=== PATIENT | female | born 1935 | race Caucasian/White ===

== ENCOUNTER 2022-03-14 15:13 | Inpatient (IN) | payer MEDICARE, SELFPAY ==
[2022-03-14 15:15] VITALS: BP 127/70; PULSE 80; RESP 17; TEMP 36; O2SAT 92; BMI 24.7
--- NOTE | 2022-03-14 15:40 | EDS_ITS ---
HPI <MAJOR Cook - Last Filed: 03/14/22 16:49> HPI - Fall History of Present Illness Chief Complaint: Fall Narrative Narrative: Prior to arrival 86-year-old female tripped and fell on her outdoor patio and landed on her left hip. No head injury or LOC. She was unable to get up or ambulate and complains of left hip and left knee pain. She has a history of left knee replacement. Denies other injuries. PFSH <MAJOR Cook - Last Filed: 03/14/22 16:49> [facility] Home Medications lisinopril 20 mg tablet 10 mg PO DAILY 03/14/22 [History Last Taken Unknown] tramadol 50 mg tablet 50 mg PO BID 03/14/22 [History Last Taken Unknown] Allergy/AdvReac Type Severity Reaction Status Date / Time amlodipine [From Norvasc] Allergy Anaphylaxis Verified 03/14/22 15:21 benazepril Allergy Anaphylaxis Verified 03/14/22 15:21 ciprofloxacin [From Cipro] Allergy Anaphylaxis Verified 03/14/22 15:21 metoprolol Allergy MADE HER Verified 03/14/22 15:21 FEEL ODD prednisone Allergy Anaphylaxis Verified 03/14/22 15:21 Social History Smoking Status: Former smoker ROS <MAJOR Cook Last Filed: 03/14/22 16:49> ROS ED ROS Narrative Constitutional: Negative for fever, chills, malaise. Eyes: Negative for visual change. ENT: Negative for sore throat, rhinorrhea. CVS: Negative for palpitations, chest pain, syncope. Respiratory: Negative for shortness of breath, cough. GI: Negative for abdominal pain, nausea, vomiting. : Negative for dysuria, hematuria or frequency. Neuro: Negative for headache, motor/sensory dysfunction. Skin: Negative for rash, abscess, or wound. Musc: Torin for left hip pain, trauma. Heme: Negative for easy bruising, bleeding, lymphadenopathy. EXAM <MAJOR Cook Last Filed: 03/14/22 16:49> Physical Exam Narrative Exam Narrative: CONST: Patient sitting in no acute distress. EYES: Normal inspection. HEAD: Atraumatic, normocephalic. NECK: Normal inspection. RESP: No respiratory distress, CTAB. Chest wall nontender. CVS: Regular rate and rhythm, no murmur, no gallop. ABD: Soft and nontender, no guarding or rebound. Back: Normal inspection, no midline spinal tenderness or step-offs. SKIN: Color normal, no rash, warm, dry, intact. EXTREMITIES: Left leg shortened with no rotation, tender to palpation over left hip and left knee. Small abrasion left lateral ankle but no bony tenderness of the ankle or foot, 2+ DP pulses. No bony tenderness of upper extremities, full range of motion, 2+ radial pulses. NEURO: Oriented x4. PSYCH: Normal affect. Const Vital Signs: 03/14/22 15:15 Temperature 96.8 F L Temperature Source Temporal Pulse Rate 80 Respiratory Rate 17 Blood Pressure 127/70 H Blood Pressure Mean 89 Pulse Ox 92 Oxygen Delivery Method Room Air <Dr. Al Fontana DO - Last Filed: 03/14/22 16:47> Physical Exam Const Vital Signs: 03/14/22 15:15 Temperature 96.8 F L Temperature Source Temporal Pulse Rate 80 Respiratory Rate 17 Blood Pressure 127/70 H Blood Pressure Mean 89 Pulse Ox 92 Oxygen Delivery Method Room Air MDM <MAJOR Cook - Last Filed: 03/14/22 16:49> [facility] Narrative Medical decision making narrative: Patient had a mechanical fall onto her left hip and presents with hip and knee pain. There was no head injury. She has left lower extremity shortening and tenderness over the hip. Pelvis is stable. She also has mild tenderness over the knee and with history of a knee replacement x-rays of both the hip and knee will be obtained. Left hip x-ray shows femoral neck fracture. Knee x-ray negative. Case was discussed with Dr. Hyatt and the hospitalist for admission. 1. Left hip pain 2. Closed left hip fracture 3. Left knee contusion 4. Left ankle abrasion I performed a history and physical examination of the patient and discussed management plan with the physician personal assistant. I reviewed the physician personal assistant's note and agree with the documented findings and plan of care. My interpretation of the plain films of the left knee is no acute fracture. My interpretation of the plain films of the left hip is an acute basicervical fracture. Patient's orthopedic surgeons have retired and the patient and family would like her to be admitted here. NVI distal to injury. Al Fontana DO [facility] Radiography Diagnostic Testing: Clinical Impression(s) from Imaging Studies Hip/Pelvis X-Ray 03/14/22 16:09 IMPRESSION: Left femoral neck fracture. Electronically Signed: Marietta Hartman MD at 16:46 EDT , Knee X-Ray 03/14/22 16:09 IMPRESSION: Total knee arthroplasty, grossly anatomic in alignment. Electronically Signed: Marietta Hartman MD at 16:43 EDT , <Dr. Al Fontana DO - Last Filed: 03/14/22 16:47> [facility] MDM Narrative Medical decision making narrative: Patient had a mechanical fall onto her left hip and presents with hip and knee pain. There was no head injury. She has left lower extremity shortening and tenderness over the hip. Pelvis is stable. She also has mild tenderness over the knee and with history of a knee replacement x-rays of both the hip and knee will be obtained. Left hip x-ray shows subcapital fracture. Case was discussed with Dr. Hyatt and the hospitalist for admission. 1. Left hip pain 2. Closed left hip fracture 3. Left knee contusion 4. Left ankle abrasion I performed a history and physical examination of the patient and discussed management plan with the physician personal assistant. I reviewed the physician personal assistant's note and agree with the documented findings and plan of care. My interpretation of the plain films of the left knee is no acute fracture. My interpretation of the plain films of the left hip is an acute basicervical fracture. Patient's orthopedic surgeons have retired and the patient and family would like her to be admitted here. NVI distal to injury. Al Fontana DO, [facility] Radiography Diagnostic Testing: Clinical Impression(s) from Imaging Studies Hip/Pelvis X-Ray 03/14/22 16:09 IMPRESSION: Left femoral neck fracture. Electronically Signed: Marietta Hartman MD at 16:46 EDT , Knee X-Ray 03/14/22 16:09 IMPRESSION: Total knee arthroplasty, grossly anatomic in alignment. Electronically Signed: Marietta Hartman MD at 16:43 EDT , Discharge Plan Dx/Rx/DC Orders Clinical Impression: Fall, Closed fracture of left hip, Contusion of knee, left Disposition Disposition: Acute Care Hospital [facility]
[2022-03-14] MEDS: Morphine 4 MG/ML Syringe IV ×2 (15:41→17:10)
[2022-03-14] MEDS: Ondansetron 4 MG/2 ML Vial IV (15:41)
--- NOTE | 2022-03-14 16:09 | RAD_ITS ---
STUDY: X-RAY - PELVIS AND LEFT HIP REASON FOR EXAM: Female, 86 years old. Fall TECHNIQUE: 3 views of the pelvis and hip. COMPARISON: None. FINDINGS: There is a non-specific bowel gas pattern. Normal visualized soft tissue structures. There are degenerative changes of the visualized lumbar spine. Normal bilateral iliac wings, sacroiliac joints and visualized sacrum. Normal bilateral superior and inferior pubic rami. Normal pubic symphysis. Normal bilateral ischial tuberosities. There is a right total hip arthroplasty in place that is grossly anatomic in alignment. There is a left femoral neck fracture with migration of the distal femur. RAD/HIP, UNI W/ Pelvis 2-3 Views IMPRESSION: Left femoral neck fracture. Electronically Signed: Marietta Hartman MD at 16:46 EDT ,
--- NOTE | 2022-03-14 16:09 | RAD_ITS ---
STUDY: X-RAY - LEFT KNEE REASON FOR EXAM: Female, 86 years old. Knee pain TECHNIQUE: 2 view(s) of the knee. COMPARISON: None. FINDINGS: There is a total knee arthroplasty in place. The alignment is anatomic. No suspicious bony lesions are visualized. No acute fracture nor dislocation is visualized. RAD/Knee 1 or 2 Views IMPRESSION: Total knee arthroplasty, grossly anatomic in alignment. Electronically Signed: Marietta Hartman MD at 16:43 EDT ,
--- NOTE | 2022-03-14 16:39 | HP.PCM.HOS_ITS ---
HPI - General General Date of Admission: 03/14/22 Date of Service: 03/14/22 Chief Complaint: Mechanical fall, L hip pain. HPI Narrative The patient is an 86 y/o F w/ PMHx: HTN who presents to the [facility] ED on 03/14/22 with history of mechanical fall onto her left hip and left side with associated concurrent knee pain with no LOC nor head injury with immediately intractable severe, sharp, constant debilitating 10/10 pain, inability to bear weight, noted LLE rotation and shortened status prompting ED evaluation. Patient notes that she had been trimming a hedge and stepped off a step flying unexpectedly and landing onto that left side. She is extremely active and swims routinely during the week and performs all her own ADLs. She denies any recent problems with shortness of breath, chest discomfort, orthopnea, recent any viral illnesses. In the ED work-up included T96.8, heart rate 80, BP 127/70, respiratory rate 17, 92% on room air, plain film of the hip and knee with evidence of left knee contusion, evaluation with concern for left ankle abrasion and evidence of a left subcapital hip fracture. ED discussed case with Dr. Hyatt who reports intention to take the patient to perform operative intervention. In the ED patient administered Zofran 4 mg x 1, morphine 4 mg x 1 and Ativan 0.5 mg x 1 IV. Discussed with ED physician and requested EKG be obtained in the ED prior to transition and that also admission labs be obtained evaluation CBC noted with WBC 11.4, hemoglobin 12.6, platelet 165 with left shift, unremarkable INR and PT, pending BMP, type and screen performed per ED staff, EKG obtained as well and performed during hospitalist evaluation noted to be sinus rhythm with right bundle with no acute evidence of ischemia. In the ED given ongoing severe pain patient administered an additional 4 mg morphine IV x1. [facility] Medical History (Updated 03/14/22 @ 17:[address] Emely David MD) Former tobacco use HTN (hypertension) Hx SBO Osteoarthritis Home Medications lisinopril 20 mg tablet 10 mg PO DAILY 03/14/22 [History Last Taken Unknown] tramadol 50 mg tablet 50 mg PO BID 03/14/22 [History Last Taken Unknown] Allergy/AdvReac Type Severity Reaction Status Date / Time amlodipine [From [facility]] Allergy Anaphylaxis Verified 03/14/22 15:21 benazepril Allergy Anaphylaxis Verified 03/14/22 15:21 ciprofloxacin [From Cipro] Allergy Anaphylaxis Verified 03/14/22 15:21 metoprolol Allergy MADE HER Verified 03/14/22 15:21 FEEL ODD prednisone Allergy Anaphylaxis Verified 03/14/22 15:21 Family History (Updated 03/14/22 @ 17:[address] Emely David MD) Mother Dementia Father Cancer Hx Lung CA with concurrent tobacco use history. Surgical History (Updated 03/14/22 @ 17:[address] Emely David MD) H/O cataract extraction History of bowel resection History of hysterectomy History of lumbar surgery History of total bilateral knee replacement History of total right hip replacement S/P right rotator cuff repair Social History (Updated 03/14/22 @ 17:[address] Emely David MD) household members: spouse Smoking Status: Former smoker how long ago did patient quit smoking: Quit 1984, smoked age 19 until quit ~ 1 ppd. alcohol intake: current alcohol intake frequency: 0-2 drinks per day Alcohol type: wine details: Drinks one glass wine with dinner nightly. substance use type: does not use ROS ROS Narrative Admission Review of Systems: CONSTITUTIONAL: No weight loss, fever, chills, + weakness or fatigue. HEENT: Eyes: No visual loss, blurred vision, double vision or yellow sclerae. Ears, Nose, Throat: No hearing loss, sneezing, congestion, runny nose or sore throat. SKIN: No rash or itching, lesions, wounds. CARDIOVASCULAR: No chest pain, chest pressure or chest discomfort, palpitations, edema, orthopnea, syncopal events. RESPIRATORY: No shortness of breath, cough or sputum, wheezing, hemoptysis. GASTROINTESTINAL: No anorexia, nausea, vomiting or diarrhea, abdominal pain, melena, BRBPR. GENITOURINARY: No dysuria, frequency, urgency or retention. NEUROLOGICAL: No headache, dizziness, syncope, paralysis, ataxia, numbness or tingling in the extremities, focal weakness, change in bowel or bladder control, seizure. MUSCULOSKELETAL: + muscle, back pain, joint pain or stiffness. HEMATOLOGIC: No anemia, bleeding or bruising. LYMPHATICS: No enlarged nodes. No history of splenectomy. PSYCHIATRIC: No history of depression or anxiety. ENDOCRINOLOGIC: No reports of sweating, cold or heat intolerance. No polyuria or polydipsia. ALLERGIES: No history of asthma, hives, eczema or rhinitis. Vital Signs Vital Signs Vital Signs: 03/14/22 15:15 Temperature 96.8 F L Temperature Source Temporal Pulse Rate 80 Respiratory Rate 17 Blood Pressure 127/70 H Blood Pressure Mean 89 Pulse Ox 92 Oxygen Delivery Method Room Air Weight Weight: 135 lb Body Mass Index (BMI) 24.7 Physical Exam Narrative Physical Examination: General: Awake, alert, oriented x 3 and cooperative, laying in the ED bed, extremely uncomfortable appearing, tearful. Skin: Normal color, normal turgor, no icterus, no cyanosis except for occasional abrasion. HEENT: AT/NC, EOMI, PERRLA, moderately dry MM, no carotid bruits or JVD noted. Lungs: Diminished, greater bases, appropriate effort, no rales, ronchi or wheezing. Heart: Currently mildly tachycardic with regular rhythm; no gallop, rub audible. Abdomen: Soft, NTTP, ND, mildly hyperactive BS, no HSM. Extremities: No cyanosis, no clubbing, left lower extremity status post fall with hip fracture, externally rotated, mild peripheral swelling, peripheral pulses intact. Neurological: Patient awake, alert, oriented as noted, cognitive function intact; pupils equally reactive to light and accommodation, cranial nerves II- XII grossly normal, moving all 4 extremities except expected severe limitation left lower extremity given recent fall with left subcapital hip fracture, pain currently tentative 10, severe, strength accordingly severely globally dec reased. Psychiatric: Affect appears uncomfortable, tearful secondary to pain, no acute evidence of depressive or anxiety feelings. Results Lab / Micro Data Result Diagrams: 03/14/22 16:57 03/14/22 16:57 Assessment & Plan Assessment/Plan (1) Closed fracture of left hip: PLAN: Plan The patient is an 86 y/o F w/ PMHx: Hx SBO s/p bowel resection, OA, HTN who presents to the [facility] ED on 03/14/22 with history of mechanical fall onto her left hip and left side with associated concurrent knee pain with no LOC nor head injury with immediately intractable severe debility 10/10 pain, inability to bear weight, noted LLE rotation and shortened status prompting ED evaluation. #1. General debility, L hip pain s/p mechanical fall w/ left subcapital hip fracture: Plain film noting left subcapital hip fracture however final read is pending. Orthopedic surgery consulted from ED and discussed case with their service upon presentation given the significant activity level of this patient she would be appropriate for at least a hemiarthroplasty if not full replacement which they are considering. Will admit to [facility], maintain NPO after midnight for planned operative intervention in a.m, continue gentle IVFs, UA, UCx, ferrer placement, monitor I/Os, frequent positioning, fall precautions, PRN pain, anti- emetic regimen. PT/OT following operative intervention. CM consulted for disch arge planning. NSQIP given age and underlying minimal comorbidities with acceptable average risk for operative intervention and given high functioning status if appropriate would benefit from hemiarthroplasty instead of pinning. Preoperative EKG has been reviewed, CBC not marked appearing, awaiting BMP, type and screen obtained per ED staff. Discussed with orthopedic surgery and agree with progression OR in AM. #2. Hypertension: Continue home regimen including lisinopril with hold parameters as needed, PRN hydralazine. #3. History of SBO: Noted remotely, status post bowel resection prior, will have aggressive bowel regimen as needed. #4. DVT prophylaxis: SCDs, defer chemoprophylaxis for planned operative intervention. #5. CODE status: Patient HCPOA is her and her daughter were present and living will is currently in place. Discussed CODE status at length including difference between FULL code, DNR-CCA and DNR-CC status. Following discussions about the differences in these status, requested DNR-CCA, no intubation status. Advanced Care Planning Face to Face Time: 16 minutes. Charges/Coding Visit Charges Inpatient E&M: 53840 Init Hosp L3 Procedures Hospitalists Procedures: 40357 Advncd Care Plan 30 Min
--- NOTE | 2022-03-14 16:48 | EKG12_ITS ---
Test Reason : Blood Pressure : / mmHG Vent. Rate : 105 BPM Atrial Rate : 000 BPM P-R Int : 000 ms QRS Dur : 134 ms QT Int : 368 ms P-R-T Axes : 000 -08 184 degrees QTc Int : 486 ms Wide QRS rhythm : Consider Sinus Tachycardia Left bundle branch block Abnormal ECG Confirmed by PHIL DANIEL, BABAK ([id number]), copy editor BOSTON REYNOLDS ([id number]) on 03/16/2022 10:02:46 AM Referred By: GERARDO Confirmed By:BABAK VILLARREAL MD
[2022-03-14] MEDS: LORazepam 2 MG/ML Syringe 0.5 MG IV (16:55)
[2022-03-14 17:08] LABS: Absolute Lymphocyte Count 1.33 X10^3/uL (0.83-4.51); Absolute Neutrophil Count 9.5 X10^3/uL (2.0-7.7); Basophil# 0.02 X10^3/uL; Basophil% 0.2 % (0-1); Eosinophil# 0.07 X10^3/uL; Eosinophils% 0.6 % (0-5); Hemoglobin 12.6 g/dL (12.0-15.0); Lymphocyte # 1.33 X10^3/ul (0.83-4.51); Lymphocyte % 11.7 % (19-41); Mean Corp Hgb Conc 30.7 g/dL (32-36); Mean Corpuscular Hgb 28.6 pg (27.0-32.0); Mean Platelet Vol. 10.9 fl (6.2-12.0); Monocyte# 0.39 X10^3/uL; Monocyte% 3.4 % (0-10); NRBC Flagged by Analyzer 0 % (0-5); Neutrophil # 9.49 X10^3/uL (2.7-7.7); Neutrophil % 83.7 % (47-70); Platelet Count 165 K/mm3 (150-450); RBC Distribution Width CV 13.8 % (11.6-14.6); Red Blood Count 4.41 M/mm3 (4.2-5.4); White Blood Count 11.4 K/mm3 (4.4-11.0)
[2022-03-14 17:15] VITALS: BP 141/73; PULSE 103; RESP 18; TEMP 36.7; O2SAT 97
[2022-03-14 17:16] LABS: Prothrombin Time (Protime)PT. 12.6 SECONDS (11.7-14.9)
[2022-03-14 17:22] LABS: Anion Gap 5 (5-15); BUN 32 mg/dL (7-18); BUN/Creat Ratio 21.5 RATIO (10-20); Calcium,Total 10.2 mg/dL (8.5-10.1); Chloride 110 mmol/L (98-107); Creatinine, Serum 1.49 mg/dL (0.55-1.02); EST Glomerular Filtration Rate 35 mL/min (>60); Est Glom Filt Rate - Afr Amer 43 mL/min (>60); Estimated Creatinine Clearance 21.04 ml/min; Glucose 106 mg/dL (74-106); Potassium 4.4 mmol/L (3.5-5.1); Sodium Level 141 mmol/L (136-145)
--- NOTE | 2022-03-14 17:43 | CON.PCM.OR_ITS ---
HPI Consult Data Date of Consult: 03/14/22 HPI Narrative Reason for Consultation: Left subcapital displaced femoral neck fracture HPI Narrative: SHANON JADE is a 86-year-old female who presents to [facility] emergency department after a mechanical fall from a single step height onto her left side when she was trimming a hedge and fell from a step onto her left side. She noted immediate pain in her left hip and some pain in her left knee. Patient has had her left total knee replacement performed approximately 5 years ago at an outside institution. She denied any antecedent left hip or groin pain. She has not been treated for any left hip osteoarthritis. She is a community ambulator, swims routinely and does not use any assistive devices for ambulation. She denied any head injury, syncopal or presyncopal symptoms, loss of consciousness, neck injury. Denies any numbness or tingling. She was seen by emergency room physician where x-rays of the left hip demonstrated displaced subcapital femoral neck fracture. Left knee x-rays demonstrated a left TKA without significant abnormality. I was consulted from the emergency department. I recommend surgical intervention. She was admitted under the service of the hospitalist, Dr. Emely David. I discussed her case with Dr. David who felt the patient is optimized for surgical intervention. I saw the patient in the emergency department. At time my examination, she denied any significant pain other than in her left hip and to a lesser degree in her left knee. She denies fevers, chills, nausea vomiting, chest pain or shortness of breath. [facility] Medical History Former tobacco use HTN (hypertension) Hx SBO Osteoarthritis Home Medications lisinopril 20 mg tablet 10 mg PO DAILY 03/14/22 [History Last Taken Unknown] tramadol 50 mg tablet 50 mg PO BID 03/14/22 [History Last Taken Unknown] Allergy/AdvReac Type Severity Reaction Status Date / Time amlodipine [From Norvasc] Allergy Anaphylaxis Verified 03/14/22 15:21 benazepril Allergy Anaphylaxis Verified 03/14/22 15:21 ciprofloxacin [From Cipro] Allergy Anaphylaxis Verified 03/14/22 15:21 metoprolol Allergy MADE HER Verified 03/14/22 15:21 FEEL ODD prednisone Allergy Anaphylaxis Verified 03/14/22 15:21 Family History Mother Dementia Father Cancer Hx Lung CA with concurrent tobacco use history. Surgical History H/O cataract extraction History of bowel resection History of hysterectomy History of lumbar surgery History of total bilateral knee replacement History of total right hip replacement S/P right rotator cuff repair Social History household members: spouse Smoking Status: Former smoker how long ago did patient quit smoking: Quit 1984, smoked age 19 until quit ~ 1 ppd. alcohol intake: current alcohol intake frequency: 0-2 drinks per day Alcohol type: wine details: Drinks one glass wine with dinner nightly. substance use type: does not use ROS ROS Narrative 12 point review systems obtained, negative as otherwise noted HPI. Vital Signs Vital Signs Vital Signs: 03/14/22 15:15 03/14/22 17:15 Temperature 96.8 F L 98.1 F Temperature Source Temporal Oral Pulse Rate 80 103 H Respiratory Rate 17 18 Blood Pressure 127/70 H 141/73 H Blood Pressure Mean 89 95 Pulse Ox 92 97 Oxygen Delivery Method Room Air Nasal Cannula Oxygen Flow Rate (L/min) 2 Weight Weight: 135 lb Body Mass Index (BMI) 24.7 Physical Exam Narrative General -A&Ox3, NAD, appears stated age. Vital signs stable, afebrile. Respiratory -normal work of breathing, no intercostal retractions. CV -pulses regular, brisk capillary refill ?4 limbs. Abdomen-soft, nontender, nondistended. No guarding, rigidity, rebound tenderness. Musculoskeletal/neurologic -full range of motion nontender throughout bilateral upper extremities, right lower extremity with full sensation and strength in all dermatomes and myotomes. No midline cervical tenderness. Left lower extremity-no obvious deformity. Pain with logroll of the left lower extremity. Nontender throughout the left knee femoral shaft, tibial shaft and left foot/ankle. No knee effusion present. Brisk capillary refill. Sensation intact light touch L3-S1 dermatomes. DF, PF, EHL intact. DP, PT 2+. Pelvis is stable, nontender. Skin is intact without lacerations, abrasions. No ecchymosis noted. Lab / Micro Data Attestation: I reviewed the patient's lab results. Result Diagrams: 03/14/22 16:57 03/14/22 16:57 Labs: Laboratory Results - last 24 hr 03/14/22 16:57: WBC 11.4 H, RBC 4.41, Hgb 12.6, Hct 41.0, MCV 93.0, MCH 28.6, MCHC 30.7 L, RDW Std Deviation 47.0 H, RDW Coeff of Ted 13.8, Plt Count 165, MPV 10.9, Immature Gran % (Auto) 0.400, Neut % (Auto) 83.7 H, Lymph % (Auto) 11.7 L, L[place]kin % (Auto) 3.4, Eos % (Auto) 0.6, Baso % (Auto) 0.2, Absolute Neuts (auto) 9.5 H, Absolute Lymphs (auto) 1.33, Nucleated RBC % 0 03/14/22 16:57: PT 12.6, INR 1.0 03/14/22 16:57: Sodium 141, Potassium 4.4, Chloride 110 H, Carbon Dioxide 26.0, Anion Gap 5, BUN 32 H, Creatinine 1.49 H, Estim Creat Clear Calc 21.04, Est GFR (MDRD) Af Amer 43 L, Est GFR (MDRD) Non-Af 35 L, BUN/Creatinine Ratio 21.5 H, Glucose 106, Calcium 10.2 H Radiology Impression Hip/Pelvis X-Ray 03/14/22 16:09 IMPRESSION: Left femoral neck fracture. Electronically Signed: Marietta Hartman MD at 16:46 EDT Reading Location ID and State: [facility] / [place] Tel , Service support , Knee X-Ray 03/14/22 16:09 IMPRESSION: Total knee arthroplasty, grossly anatomic in alignment. Electronically Signed: Marietta Hartman MD at 16:43 EDT , Assessment & Plan Assessment/Plan (1) Closed fracture of left hip: QUALIFIERS: Encounter type: initial encounter Qualified Code(s): S72.002A - Fracture of unspecified part of neck of left femur, initial encounter for closed fracture PLAN: Patient sustained a left displaced subcapital femoral neck fracture. -Closed, neurovascularly intact -Isolated injury -Recommending surgical intervention in the form of left hip cemented hemiarthroplasty. We discussed total hip arthroplasty. I reviewed the risks, benefits i.e. pros and cons of total versus hemiarthroplasty. Without significant hip or groin pain prior to the injury and mild to moderate osteoarthritic changes noted in the left hip, I explained both procedures were reasonable options. I explained the increased risk of bleeding, extended surgical time, increased risk of instability with a total hip arthroplasty instead of a hemiarthroplasty. I also explained the risk of persistent groin pain or progression of acetabular osteoarthritic wear and need for conversion to a total hip arthroplasty in the future if this is symptomatic. Patient expressed understanding of both procedures and wished to proceed with a hemiarthroplasty. -I discussed the procedure-its risks, benefits and alternative. Risks include but are not limited to bleeding, infection, loss of life or limb, risk of anesthesia, persistent pain or disability, need for additional surgery, instability, failure of orthopedic hardware, neurovascular injury, DVT or PE. Patient expressed understanding these risks and wished proceed with surgery. -Maintenance IV fluids, clear liquid diet after midnight n.p.o. at 2 hours prior to surgery -Type and screen -2 g Ancef on-call to the OR -Bedrest, heel protectors -Plan to proceed with surgery tomorrow morning when OR becomes available Thank you for this consultation.
[2022-03-14 17:55] VITALS: BMI 25.4
[2022-03-14 18:02] VITALS: BP 141/61; PULSE 100; RESP 16; TEMP 36.8; O2SAT 97
[2022-03-14] MEDS: Morphine 2 MG/ML Syringe IV ×2 (18:29→21:17)
[2022-03-14] MEDS: 0.9% Normal Saline 1,000 ML 100 ML IV (18:30)
[2022-03-14 18:53] LABS: ALB/GLOB Ratio 1.3 RATIO (0.9-2.4); AST(SGOT) 24 U/L (15-37); Alanine Aminotransfer ALT/SGPT 28 U/L (13-56); Albumin, Serum 3.9 g/dL (3.2-5.0); Alkaline Phosphatase 67 U/L (45-117); Globulin 3.1 g/dL (2.2-4.2)
[2022-03-14] MEDS: MELATONIN 3 MG TABLET PO (20:24)
[2022-03-14] MEDS: oxyCODONE 5 MG Tablet PO (20:24)
[2022-03-14] MEDS: Acetaminophen 325 MG Tablet 650 MG PO (20:25)
[2022-03-14 20:32] VITALS: BP 142/73; PULSE 101; RESP 16; TEMP 36.7; O2SAT 95
[2022-03-14] MEDS: 0.9% Saline Lock 10 ML Syringe IV (21:17)
[2022-03-15] VITALS (11 sets, daily range): BP systolic 110–137; BP diastolic 44–111; PULSE 70–99; RESP 12–16; TEMP 36.6–37.3; O2SAT 85–99; BMI 25.4
[2022-03-15] MEDS: 0.9% Normal Saline 1,000 ML 100 ML IV ×3 (03:19→19:02)
[2022-03-15] MEDS: Morphine 2 MG/ML Syringe IV ×2 (04:03→07:17)
[2022-03-15] MEDS: 0.9% Saline Lock 10 ML Syringe IV ×2 (04:04→07:18)
[2022-03-15 06:15] LABS: Absolute Neutrophil Count 5.9 X10^3/uL (2.0-7.7); Basophil# 0.02 X10^3/uL; Basophil% 0.3 % (0-1); Eosinophils% 2.7 % (0-5); Hematocrit 37.1 % (37-47); Hemoglobin 11.3 g/dL (12.0-15.0); Lymphocyte % 12.2 % (19-41); Mean Corp Hgb Conc 30.5 g/dL (32-36); Mean Corpuscular Hgb 28.6 pg (27.0-32.0); Mean Corpuscular Volume 93.9 fL (81-99); Mean Platelet Vol. 11.5 fl (6.2-12.0); Monocyte# 0.35 X10^3/uL; Monocyte% 4.7 % (0-10); NRBC Flagged by Analyzer 0 % (0-5); Neutrophil % 79.8 % (47-70); Platelet Count 145 K/mm3 (150-450); RBC Distribution Width CV 13.8 % (11.6-14.6); RBC Distribution Width SD 47.6 fl (35.1-43.9); Red Blood Count 3.95 M/mm3 (4.2-5.4); White Blood Count 7.4 K/mm3 (4.4-11.0)
--- NOTE | 2022-03-15 06:22 | PN.HOSP_ITS ---
Subjective Subjective Patient overnight with significant improvement in pain and patient even notes that she did end up sleeping well. Discussions this morning with planned hemiarthroplasty early with family coming in with no questions at this time. Discussed again and encouraged consideration for acute inpatient rehab given her significant activity level and they were amenable with rehab contacted and given the patient's name for consideration. Patient denies fevers, chills, nausea, emesis, abdominal pain, chest pain or dyspnea. Objective Data Objective Data Vital Signs: Vital Signs Temp Pulse Resp BP Pulse Ox O2 Del Method O2 Flow Rate 98.5 F 81 16 129/61 H 97 Nasal Cannula 2 03/15/22 03:34 03/15/22 03:34 03/15/22 03:34 03/15/22 03:34 03/15/22 03:34 03/15/22 03:34 03/15/22 03:34 Oxygen Flow Rate (L/min) 2 Oxygen Delivery Method Nasal Cannula Weight: 139 lb Body Mass Index (BMI) 25.4 Intake & Output: Intake and Output for Last 24 Hours 03/13/22 03/14/22 03/15/22 23:59 23:59 23:59 Intake Total 881.67 / 881.67 Output Total 450 / 450 Balance 431.67 / 431.67 Lab / Micro Data Result Diagrams: 03/15/22 05:22 03/15/22 05:22 Labs: Laboratory Results - last 24 hr 03/14/22 16:57: WBC 11.4 H, RBC 4.41, Hgb 12.6, Hct 41.0, MCV 93.0, MCH 28.6, MCHC 30.7 L, RDW Std Deviation 47.0 H, RDW Coeff of Ted 13.8, Plt Count 165, MPV 10.9, Immature Gran % (Auto) 0.400, Neut % (Auto) 83.7 H, Lymph % (Auto) 11.7 L, [place] % (Auto) 3.4, Eos % (Auto) 0.6, Baso % (Auto) 0.2, Absolute Neuts (auto) 9.5 H, Absolute Lymphs (auto) 1.33, Nucleated RBC % 0 03/14/22 16:57: PT 12.6, INR 1.0 03/14/22 16:57: Sodium 141, Potassium 4.4, Chloride 110 H, Carbon Dioxide 26.0, Anion Gap 5, BUN 32 H, Creatinine 1.49 H, Estim Creat Clear Calc 21.04, Est GFR (MDRD) Af Amer 43 L, Est GFR (MDRD) Non-Af 35 L, BUN/Creatinine Ratio 21.5 H, Glucose 106, Calcium 10.2 H, Total Bilirubin 0.70, AST 24, ALT 28, Alkaline Phosphatase 67, Total Protein 7.0, Albumin 3.9, Globulin 3.1, Albumin/Globulin Ratio 1.3 03/14/22 16:57: Blood Type O POSITIVE, Antibody Screen NEGATIVE 03/15/22 05:22: WBC 7.4, RBC 3.95 L, Hgb 11.3 L, Hct 37.1, MCV 93.9, MCH 28.6, MCHC 30.5 L, RDW Std Deviation 47.6 H, RDW Coeff of Ted 13.8, Plt Count 145 L, MPV 11.5, Immature Gran % (Auto) 0.300, Neut % (Auto) 79.8 H, Lymph % (Auto) 12.2 L, [place] % (Auto) 4.7, Eos % (Auto) 2.7, Baso % (Auto) 0.3, Absolute Neuts (auto) 5.9, Absolute Lymphs (auto) 0.90, Nucleated RBC % 0 Radiography Diagnostic Testing: Radiology Impression Hip/Pelvis X-Ray 03/14/22 16:09 IMPRESSION: Left femoral neck fracture. Electronically Signed: Marietta Hartman MD at 16:46 EDT Reading Location ID and State: [facility] / [place] Tel , Service support , Knee X-Ray 03/14/22 16:09 IMPRESSION: Total knee arthroplasty, grossly anatomic in alignment. Electronically Signed: Marietta Hartman MD at 16:43 EDT , Physical Exam Narrative Physical Examination: General: Awake, alert, oriented x 3 and cooperative, laying medical surgical bed, significantly more comfortable than day prior Skin: Normal color, normal turgor, no icterus, no cyanosis except occasional staged ecchymoses, brace. HEENT: AT/NC, EOMI, PERRLA, MMM. Lungs: Mildly diminished, greater bases, poor effort, no rales, ronchi or wheezing. Heart: Improved, regular rate and rhythm; no gallop, rub audible. Abdomen: Soft, NTTP, ND, mildly hyperactive bowel sounds Extremities: No cyanosis, no clubbing, status post fall with left lower extremity externally rotated, mild peripheral swelling. Neurological: Patient awake, alert, oriented as noted, cognitive function intact; pupils equally reactive to light and accommodation, cranial nerves II- XII grossly normal, moving all 4 extremities except expected limitation left lower extremity with left hip subcapital fracture, strength accordingly severely global decreased. Psychiatric: Affect appears rested, significantly more comfortable than day prior, no acute evidence of depressive or anxiety feelings. Assessment & Plan Assessment/Plan (1) Closed fracture of left hip: QUALIFIERS: Encounter type: initial encounter Qualified Code(s): S72.002A - Fracture of unspecified part of neck of left femur, initial encounter for closed fracture PLAN: Plan The patient is an 86 y/o F w/ PMHx: Hx SBO s/p bowel resection, OA, HTN who presents to the [facility] ED on 03/14/22 with history of mechanical fall onto her left hip and left side with associated concurrent knee pain with no LOC nor head injury with immediately intractable severe debility 10/10 pain, inability to bear weight, noted LLE rotation and shortened status prompting ED evaluation. #1. General debility, L hip pain s/p mechanical fall w/ left subcapital hip fracture: Plain film noting left subcapital hip fracture however final read is pending. Orthopedic surgery consulted from ED and discussed case with their service upon presentation given the significant activity level of this patient she would be appropriate for at least a hemiarthroplasty if not full replacement which they are considering. Patient was admitted to medical surgical floor, 03/15/[address] Hyatt. Maintain on judicious IV fluids, n.p.o. status awaiting OR, White in place, monitor I/Os, frequent positioning, fall precautions, PRN pain, anti-emetic regimen. PT/OT following operative intervention. CM consulted for discharge planning. 03/15/2022 contacted acute rehab and gave patient name for consideration if insurance approves. #2. Suspected CKD III, Unclear subtype: Admission BUN/creatinine 32/1.49, GFR 35, creatinine clearance however reduced to 21.04, unclear exact baseline however following overnight judicious hydration repeat 03/15/2022 BUN/creatinine 26/1.30, do suspect likely chronic component. Will continue to trend. #3. Hypertension: BP low normal, holding lisinopril especially given initial concern for possible DOLLY, resume medication once appropriate. As needed IV hydralazine #4. History of SBO: Noted remotely, status post bowel resection prior, continue bowel regimen per protocol. #5. DVT prophylaxis: SCDs, defer chemoprophylaxis for planned operative intervention this a.m. #5. CODE status: DNR-CCA, no intubation status. Charges/Coding Visit Charges Inpatient E&M: 27907 Subs Hosp L2
[2022-03-15 06:49] LABS: AST(SGOT) 18 U/L (15-37); Alanine Aminotransfer ALT/SGPT 23 U/L (13-56); Alkaline Phosphatase 56 U/L (45-117); Anion Gap 4 (5-15); BUN 26 mg/dL (7-18); Calcium,Total 8.9 mg/dL (8.5-10.1); Chloride 112 mmol/L (98-107); EST Glomerular Filtration Rate 41 mL/min (>60); Est Glom Filt Rate - Afr Amer 50 mL/min (>60); Estimated Creatinine Clearance 24.11 ml/min; Glucose 120 mg/dL (74-106); Potassium 4.5 mmol/L (3.5-5.1); Sodium Level 141 mmol/L (136-145)
--- NOTE | 2022-03-15 07:56 | NURSING ---
pt to surgery
--- NOTE | 2022-03-15 08:05 | FEM_PTH ---
PATIENT: SHANON JADE LOC: MS3 U#:[id number] AGE/SX: 86/F [place] [facility] [place]: Dr. Connie Narayan MD : 1935 BED: 1 DIS: 03/17/2022 SPEC #: [id number] RECD: 03/16/22 14:11 STATUS: ABELARDO CALVINMaribel #: [id number] YANCY: 03/15/22 08:[address]: Connie Narayan DEPT: SURGICAL PATHOLOGY RECD BY: Trish Patrick ENTERED: 03/17/22 08:09 SP TYPE: FEM HEAD OTHR DR: MD Dr. Ricky Stewart DO Dr. Nicholas Spittle, DO Tissues: Femoral region, NOS Procedures: Decalcification bone/plaque Surgery Specimen Level V HEADER OPERATION: Hemiarthroplasty, hip PRE-OP DIAGNOSIS: Closed fracture of left hip TISSUE SUBMITTED: Left femoral head MICROSCOPIC DIAGNOSIS Left femoral head, hemiarthroplasty: Femoral head with focal area of hemorrhage, clinically fracture. A piece of dense fibroconnective tissue with reactive changes. 03/20/2022 MICROSCOPIC DESCRIPTION Slides are reviewed. GROSS DESCRIPTION Received is one container labeled with the patient's name and designated femoral head and tissue. The specimen consists of a golden femoral head measuring 4.5 x 4.5 x 3.5 cm. The articular surface focal area of erosion. Resection margin is irregular and hemorrhagic. Also present in the specimen container are multiple detached pieces of bone measuring in aggregate 5 x 4 x 3.0 cm. Also present attached to the femoral head is a piece of soft tissue measuring 2.5 x 0.5 x 0.5 cm. Casino Operations Supervisor sections are submitted in three cassettes as follows: 1 - soft tissue, entirely submitted, 2 - detached pieces of bone after decalcification, 3 - femoral head after decalcification. / . / AMRIK:justen 03/17/22 TC:5 CPT: 75793, 06089
[2022-03-15] MEDS: Cefazolin 2 GM in 0.9% Normal Saline 100 ML IV ×3 (08:20→23:17)
[2022-03-15] MEDS: TXA 1000mg in NS100 100ml (IVPB at Closure) 660 MG IV (09:25)
[2022-03-15] MEDS: Bupivacaine 0.25% 30 ML Vial (09:35)
--- NOTE | 2022-03-15 09:57 | RAD_ITS ---
STUDY: X-RAY - PELVIS AND LEFT HIP REASON FOR EXAM: Female, 86 years old. Postop from hip replacement surgery TECHNIQUE: 2 views of the pelvis and hip. COMPARISON: None. FINDINGS: 2 views of the pelvis and left hip performed after hip replacement surgery. Replaced left hip joint demonstrates anatomic alignment. Normal postoperative soft tissue swelling and subcutaneous emphysema noted. No postoperative complications. Limited evaluation of the replaced right hip shows it to be in anatomic alignment and free of complications. RAD/Hip Min 2 Views (Portable) IMPRESSION: Anatomic alignment of the replaced left hip joint with normal postoperative soft tissue swelling and subcutaneous emphysema. No postoperative complications noted Electronically Signed: Cristian Harris MD at 11:01 EDT ,
--- NOTE | 2022-03-15 10:18 | PCM.OPRPT ---
Report of Operation Date of Procedure: 03/15/22 Description of Surgical Findings:: Preoperative diagnosis: Left displaced femoral neck fracture Postoperative diagnosis: Left displaced femoral neck fracture Procedure: Left cemented hip hemiarthroplasty Surgeon: James Hyatt DO Metal Bonding Assembler: MICHAEL Ramirez Anesthesia: General endotracheal Anesthesiologist: Fahad Aguilar CRNA Complications: None apparent Drains: None Estimated blood loss: 150 cc Urinary output: None recorded IV fluids: 1 L crystalloid Specimens: Femoral head resection Surgical implants: Tatianna Accolade C 127 degree neck angle hip stem size #4, Unitrax neck adjustment sleeve standard, Unitrax endoprosthesis head component outer diameter 46 mm Indications: This is an 86-year-old female who sustained a mechanical fall from a single step after she was done trimming her hedges yesterday at home. She landed on her left side. She was brought to [facility] where x-rays revealed a displaced left femoral neck fracture. She was admitted under the service of the hospitalist. I was consulted to see the patient for surgical recommendations. I recommended a left hip hemiarthroplasty due to the pattern and displacement. I reviewed the procedure with the patient, its risk, benefits, alternatives. Risks included but were not limited to bleeding, infection, loss of life or limb, risk of anesthesia, neurovascular injury, persistent pain, instability, need for additional surgery, failure of orthopedic hardware, loosening, osteolysis, need for assistive devices long-term. Patient expressed understanding wish to proceed with surgery. Description of procedure: Prior to the procedure, patient was brought to the preoperative holding area where patient was identified by name, medical record number and date of . I confirmed the side, site, operation to be performed with the patient. Informed consent was confirmed, All questions were answered to patient satisfaction. The operative extremity was marked. She was also seen by anesthesia staff and anesthesia consent obtained. At time of the operative procedure, pt was brought to the operative suite. General anesthesia was induced on the hospital bed and endotracheal tube placed. After adequate anesthesia, patient was transferred to a standard operating table. She was then positioned in the lateral decubitus position with the left side up and held in position by a pegboard hip positioner system. All bony prominences were well-padded. A axillary roll was placed under the patient's right axilla. Peroneal nerve was free with a blanket on the nonoperative extremity. Leg lengths were reproduced from patient's position when she was supine. The left lower extremity was then prepped and draped in normal, sterile orthopedic fashion. We performed a timeout with all parties in attendance in agreement with the side, site, and operation to be performed. No concerns were voiced and would like to proceed. I first marked an incision along the lateral aspect of the hip centered over the greater trochanteric tip. In standard posterior approach, a curvilinear incision was made above the trochanter. An approximately 15 cm incision was made. Skin was sharply incised with a 10 blade scalpel carried deep through subcutaneous layers to the level of the IT band. Gelpi retractors were then placed. A Huynh was used to expose the IT band. Bovie cautery was then used for hemostasis and then to open the IT band. This was opened in line with the incision. A Charnley retractor was then placed. Sciatic nerve was free. The trochanteric bursa was then debrided. This identified the short external rotators after internal rotation of the hip. The fracture site was easily identified at this point. Short external rotators were taken down and tagged for later repair. Hip capsule was also tagged for repair with a stay suture. We then freshened the neck cut with a sagittal saw. Anterior and posterior acetabular retractors were placed to gain access to the femoral head. A corkscrew was used to remove the head. Any remaining debris was debrided from the acetabulum. We then placed the femoral head on the back table for measurement. We did use trial heads and selected a final size 46 with good suction fit. Box chisel was then utilized to gain access to the femoral canal. Canal finder was placed. Sequential broaches were used and press-fit manner. A final size 4 achieved excellent vertical and rotational stability. We then trialed with a standard and subsequently high offset stem. I offset did achieve excellent stability and reproduction of abductor tension. Leg lengths appeared appropriate with a size 0 neck length. Trials were then removed. Given her age and stovepipe appearing cortical cancellous ratio on x-ray, cement fixation was chosen. I measured for an appropriately sized centralizer. We copiously irrigated the wound with normal saline solution and irrisept solution. I prepared the femoral canal with a wire brush, pulse lavage. Cement restrictor was placed to allow approximate 1 cm distal cement mantle. Vaginal packing was then placed in the femoral canal while cement was mixed on the back table. Vaginal packing was then removed. Cement was pressurized in the canal. A size 4 stem was then placed by hand reproducing version down to the level of the calcar. Excess cement was removed. Pressure was held over the femoral stem until cement had cured. Final head was then impacted over clean dry Thomas taper neck. Final reduction was performed. A posterior capsular repair was performed with #2 Ethibond suture and bone tunnels. IT band was closed watertight with # 2 strata fix suture Deeper fascial layers were closed with 0 Vicryl suture in interrupted fashion. Subcutaneous layers were reapproximated with 2-0 Vicryl suture and skin reapproximated with skin lianne. A silver dressing was applied. Patient tolerated procedure well without complication. She was positioned back in the supine position on her hospital bed and subsequently extubated safely. She was transferred to PACU in stable condition. Blankets were placed between the patient's leg to be left in place for the first 24 hours while she was in bed. Post Operative Plan: Weightbearing: Weightbearing as tolerated left lower extremity, posterior hip precautions. Blankets between the legs while she is in bed for the first 24 hours Antibiotics: Ancef 2 g every 8 hours x 3 doses DVT Prophylaxis: Aspirin 81 mg twice daily to start this evening, SCDs, early mobilization, NATHAN hose White: None Dressing: Maintain silver dressing x7 days X-Rays: PACU x-rays were reviewed demonstrated well-positioned, well fixed left cemented hip hemiarthroplasty implant. Follow-up 2-week x-rays in the office. Follow-up: 2 weeks in my office for staple removal
--- NOTE | 2022-03-15 10:31 | EKG12_ITS ---
Test Reason : POST OP Blood Pressure : / mmHG Vent. Rate : 100 BPM Atrial Rate : 100 BPM P-R Int : 160 ms QRS Dur : 142 ms QT Int : 390 ms P-R-T Axes : 054 -33 167 degrees QTc Int : 503 ms Normal sinus rhythm Left axis deviation Left bundle branch block Abnormal ECG When compared with ECG of 14-MAR-2022 17:06, MANUAL COMPARISON REQUIRED, DATA IS UNCONFIRMED Confirmed by SHOBHA DANIEL, LOUISE ([id number]), dictionary editor BOSTON REYNOLDS ([id number]) on 03/16/2022 2:11:19 PM Referred By: PREMA Confirmed By:LOUISE YEAGER MD
[2022-03-15] MEDS: Calcium Carbonate 500 MG Tablet PO ×2 (13:09→15:46)
[2022-03-15] MEDS: Acetaminophen 500 MG Tablet 1000 MG PO ×2 (13:09→19:49)
[2022-03-15] MEDS: Aspirin 81 MG TAB.CHEW PO (19:49)
[2022-03-15] MEDS: Senna/Docusate Sodium 1 Tablet 2 TABLET PO (19:49)
[2022-03-16] VITALS (7 sets, daily range): BP systolic 116–146; BP diastolic 57–71; PULSE 62–88; RESP 16–18; TEMP 36.6–37.2; O2SAT 84–99
[2022-03-16] MEDS: Acetaminophen 500 MG Tablet 1000 MG PO ×3 (05:04→20:54)
[2022-03-16 07:03] LABS: Absolute Lymphocyte Count 0.81 X10^3/uL (0.83-4.51); Absolute Neutrophil Count 4.8 X10^3/uL (2.0-7.7); Basophil# 0.03 X10^3/uL; Basophil% 0.5 % (0-1); Eosinophil# 0.31 X10^3/uL; Eosinophils% 4.9 % (0-5); Hematocrit 34.5 % (37-47); Hemoglobin 10.3 g/dL (12.0-15.0); Lymphocyte # 0.81 X10^3/ul (0.83-4.51); Lymphocyte % 12.7 % (19-41); Mean Corp Hgb Conc 29.9 g/dL (32-36); Mean Corpuscular Hgb 28.5 pg (27.0-32.0); Mean Corpuscular Volume 95.6 fL (81-99); Mean Platelet Vol. 11.4 fl (6.2-12.0); Monocyte# 0.44 X10^3/uL; Monocyte% 6.9 % (0-10); NRBC Flagged by Analyzer 0 % (0-5); Neutrophil # 4.79 X10^3/uL (2.7-7.7); Neutrophil % 74.8 % (47-70); Platelet Count 131 K/mm3 (150-450); RBC Distribution Width SD 49.3 fl (35.1-43.9); Red Blood Count 3.61 M/mm3 (4.2-5.4); White Blood Count 6.4 K/mm3 (4.4-11.0)
[2022-03-16] MEDS: Aspirin 81 MG TAB.CHEW PO ×2 (07:34→17:56)
[2022-03-16] MEDS: Calcium Carbonate 500 MG Tablet PO ×3 (07:35→17:56)
[2022-03-16] MEDS: Cefazolin 2 GM in 0.9% Normal Saline 100 ML IV (07:37)
[2022-03-16 07:39] LABS: ALB/GLOB Ratio 0.9 RATIO (0.9-2.4); AST(SGOT) 72 U/L (15-37); Alanine Aminotransfer ALT/SGPT 25 U/L (13-56); Albumin, Serum 2.5 g/dL (3.2-5.0); Alkaline Phosphatase 48 U/L (45-117); Anion Gap 6 (5-15); BUN 20 mg/dL (7-18); BUN/Creat Ratio 14.8 RATIO (10-20); Calcium,Total 8.5 mg/dL (8.5-10.1); Chloride 114 mmol/L (98-107); Creatinine, Serum 1.35 mg/dL (0.55-1.02); EST Glomerular Filtration Rate 39 mL/min (>60); Est Glom Filt Rate - Afr Amer 48 mL/min (>60); Estimated Creatinine Clearance 23.22 ml/min; Globulin 2.7 g/dL (2.2-4.2); Glucose 114 mg/dL (74-106); Protein, Total 5.2 g/dL (6.4-8.2); Sodium Level 143 mmol/L (136-145)
--- NOTE | 2022-03-16 07:43 | PCM.PN.ORT ---
Subjective Subjective Patient seen and examined. Reports some mild ankle and knee pain. She states her left hip pain is much improved compared to preop. Denies fevers, chills, nausea vomiting, chest pain or shortness of breath. Has not been out of bed yet with nursing. Objective Data Objective Data Vital Signs: Vital Signs Temp Pulse Resp BP Pulse Ox O2 Del Method O2 Flow Rate 98.1 F 66 16 116/58 L 99 Nasal Cannula 2 03/16/22 01:48 03/16/22 01:48 03/16/22 01:48 03/16/22 01:48 03/16/22 01:48 03/16/22 01:48 03/16/22 01:48 Oxygen Flow Rate (L/min) 2 Oxygen Delivery Method Nasal Cannula Weight: 145 lb 1.6 oz Body Mass Index (BMI) 25.4 Intake & Output: Intake and Output for Last 24 Hours 03/14/22 03/15/22 03/16/22 23:59 23:59 23:59 Intake Total 3476.67 / 3476.67 876.67 / 876.67 Output Total 1600 / 1600 500 / 500 Balance 1876.67 / 1876.67 376.67 / 376.67 Lab / Micro Data Result Diagrams: 03/16/22 06:15 03/16/22 06:15 Labs: Laboratory Results - last 24 hr 03/16/22 06:15: WBC 6.4, RBC 3.61 L, Hgb 10.3 L, Hct 34.5 L, MCV 95.6, MCH 28.5, MCHC 29.9 L, RDW Std Deviation 49.3 H, RDW Coeff of Ted 14.0, Plt Count 131 L, MPV 11.4, Immature Gran % (Auto) 0.200, Neut % (Auto) 74.8 H, Lymph % (Auto) 12.7 L, [place] % (Auto) 6.9, Eos % (Auto) 4.9, Baso % (Auto) 0.5, Absolute Neuts (auto) 4.8, Absolute Lymphs (auto) 0.81 L, Nucleated RBC % 0 03/16/22 06:15: Sodium 143, Potassium 4.0, Chloride 114 H, Carbon Dioxide 23.0, Anion Gap 6, BUN 20 H, Creatinine 1.35 H, Estim Creat Clear Calc 23.22, Est GFR (MDRD) Af Amer 48 L, Est GFR (MDRD) Non-Af 39 L, BUN/Creatinine Ratio 14.8, Glucose 114 H, Calcium 8.5, Total Bilirubin 0.60, AST 72 H, ALT 25, Alkaline Phosphatase 48, Total Protein 5.2 L, Albumin 2.5 L, Globulin 2.7, Albumin/Globulin Ratio 0.9 Radiography Diagnostic Testing: Radiology Impression Hip X-Ray 03/15/22 09:57 IMPRESSION: Anatomic alignment of the replaced left hip joint with normal postoperative soft tissue swelling and subcutaneous emphysema. No postoperative complications noted Electronically Signed: Cristian Harris MD at 11:01 EDT Reading Location ID and State: [facility] / [place] , Service support , Physical Exam Narrative General - A&Ox3, NAD. VSS/AF Left lower extremity -incisional dressing C/D/I. SILT Sural, Saphenous, SPN, DPN, Tibial N. distributions. DP, PT 2+. BCR. DF, PF, EHL 5/5. No calf TTP. Nontender about the ankle and knee without significant soft tissue swelling. Assessment & Plan Assessment/Plan (1) Closed fracture of left hip: QUALIFIERS: Encounter type: initial encounter Qualified Code(s): S72.002A - Fracture of unspecified part of neck of left femur, initial encounter for closed fracture PLAN: POD#1 s/p left hip hemiarthroplasty - Pain control - Medicine following for medical management - PT/OT -weightbearing as tolerated left lower extremity with posterior precautions - DVT PPX -Multimodal with aspirin 81 mg twice daily, SCDs, NATHAN springer, early mobilization - Case management - D/C planning
[2022-03-16] MEDS: oxyCODONE 5 MG Tablet PO ×2 (08:09→17:55)
--- NOTE | 2022-03-16 09:27 | PN.HOSP_ITS ---
Subjective Subjective Follow-up status post left hip hemiarthroplasty: Patient was seen and examined. Her pain is fairly controlled. She has been able to sit up out of bed. No other acute events overnight. He denies any chest pain or dizziness or palpitations. Objective Data Objective Data Vital Signs: Vital Signs Temp Pulse Resp BP Pulse Ox O2 Del Method O2 Flow Rate 97.8 F 74 18 119/57 L 93 Room Air 2 03/16/22 07:47 03/16/22 07:47 03/16/22 07:47 03/16/22 07:47 03/16/22 07:55 03/16/22 07:55 03/16/22 01:48 Oxygen Flow Rate (L/min) 2 Oxygen Delivery Method Room Air Weight: 65.816 kg Body Mass Index (BMI) 25.4 Intake & Output: Intake and Output for Last 24 Hours 03/14/22 03/15/22 03/16/22 23:59 23:59 23:59 Intake Total 3476.67 / 3476.67 876.67 / 876.67 Output Total 1600 / 1600 500 / 500 Balance 1876.67 / 1876.67 376.67 / 376.67 Lab / Micro Data Result Diagrams: 03/16/22 06:15 03/16/22 06:15 Labs: Laboratory Results - last 24 hr 03/16/22 06:15: WBC 6.4, RBC 3.61 L, Hgb 10.3 L, Hct 34.5 L, MCV 95.6, MCH 28.5, MCHC 29.9 L, RDW Std Deviation 49.3 H, RDW Coeff of Ted 14.0, Plt Count 131 L, MPV 11.4, Immature Gran % (Auto) 0.200, Neut % (Auto) 74.8 H, Lymph % (Auto) 12.7 L, [place] % (Auto) 6.9, Eos % (Auto) 4.9, Baso % (Auto) 0.5, Absolute Neuts (auto) 4.8, Absolute Lymphs (auto) 0.81 L, Nucleated RBC % 0 03/16/22 06:15: Sodium 143, Potassium 4.0, Chloride 114 H, Carbon Dioxide 23.0, Anion Gap 6, BUN 20 H, Creatinine 1.35 H, Estim Creat Clear Calc 23.22, Est GFR (MDRD) Af Amer 48 L, Est GFR (MDRD) Non-Af 39 L, BUN/Creatinine Ratio 14.8, Glucose 114 H, Calcium 8.5, Total Bilirubin 0.60, AST 72 H, ALT 25, Alkaline Phosphatase 48, Total Protein 5.2 L, Albumin 2.5 L, Globulin 2.7, Albumin/Globulin Ratio 0.9 Radiography Diagnostic Testing: Radiology Impression Hip X-Ray 03/15/22 09:57 IMPRESSION: Anatomic alignment of the replaced left hip joint with normal postoperative soft tissue swelling and subcutaneous emphysema. No postoperative complications noted Electronically Signed: Cristian Harris MD at 11:01 EDT Reading Location ID and State: [facility] / [place] , Service support , Physical Exam Narrative Physical exam: General: Alert, Oriented x3, Cooperative, No apparent distress, appears frail HEENT: Atraumatic Oral: Moist Mucosa Neck: Supple Lungs: Clear to auscultation Cardiovascular: HS I+II, regular, no murmurs Abdomen: Bowel Sounds Present, Soft, Non Tender Extremities: Dressing over the left hip, intact, tenderness on palpation of the left hip. Skin: No rashes, No breakdown Neurological: Grossly intact Psych/Mental Status: Appropriate Assessment & Plan Assessment/Plan (1) Closed fracture of left hip: QUALIFIERS: Encounter type: initial encounter Qualified Code(s): S72.002A - Fracture of unspecified part of neck of left femur, initial encounter for closed fracture PLAN: Plan 1. Postop day #1 status post left hip hemiarthroplasty, mechanical, traumatic, status post fall Pain is fairly controlled, continue current pain regimen with scheduled Tylenol, as needed oxycodone Continue according to orthopedics recommendation PT/OT evaluation 2. Hypertension, controlled, off lisinopril We will continue to monitor 3. Anemia, normocytic normochromic likely secondary to postop blood loss/hemodilution Patient admitted with hemoglobin of 12.6, hemoglobin today is 10.3. We will start patient on oral iron with vitamin C and stool softeners Repeat blood work in a.m. if patient is not discharged 4. CKD stage IIIa, creatinine is 1.35, close to 1.30 yesterday We will continue to hold lisinopril, continue to trend 5. Debility related to #1 Patient uses wheeled walker at home Awaiting discharge to care home facility Social work consulted 6. DVT prophylaxis?on aspirin twice daily per orthopedics recommendations Charges/Coding Visit Charges Inpatient E&M: 05492 Subs Hosp L2
--- NOTE | 2022-03-16 10:30 | CASEMGMT ---
TAYLA TONY Assessment: Face to Face with pt for initial transition planning/care coordination assessment. TAYLA TONY introduced self and role at [facility], pt voices understanding and consents to assessment. Pt is A/O x4 and answers all questions appropriately at this time. Pt sitting up in chair in no distress. Care providers, pharmacy, and demographics verified/updated. Admitting Dx: fall, L hip fx PCP: Margarita Specialists:bozena Hyatt [facility]acy: [facility] [place] Insurance: [facility] Prescription Benefit: yes LW/HPOA: Pt states she has a LW/DPOA and her DPOA is her , Aldair Romano. She is aware this is not on file at [facility] and states her dtr is working on finding it to bring it in. LNOK: Aldair Romano, ; Alexandria Miller, dtr Living Arrangements: Pt lives in a single story condo with 3 steps to enter with a rail in the garage. Pt reports she was I in ADLs and was trimming her hedges when her fall occurred. Pt denies concerns at home. Transportation: Pt drives self and denies concerns with transportation. DME/HHC/SNF: Pt has a cane, FWW, toilet riser and shower chair at home. Pt states she doesn't use them but they are available. Pt has had HHC in the past, she does not know which agency this was provided from. Pt denies SNF stays. Pt states she would like to go to [facility] for rehab.Updated SW. Pt states no further concerns/needs. CM to follow. Advised pt to ask CM if any further question/concerns/needs arise, voices understanding. Pt Goal: [facility] Plan: [facility]
--- NOTE | 2022-03-16 11:51 | CASEMGMT ---
Social Work SW in to meet with pt. SW introduced self and role of at the hospital. Pt sitting in chair beside bed and voiced understanding of SW role. Patient was provided a list of?SNF?providers including quality and resource use data that is consistent with the patient?s preferred geographic region, medical needs, and insurance network. The patient?s preferred provider is?[facility]. Pt stated her went to TCU last month and she knows many of the employees there and feels it would be a good fit for her. SW informed pt that precert would be started today. Pt voiced understanding. Plan: TCU, pending precert. KRISTA Gee
[2022-03-16] MEDS: Ferrous Sulfate 325 MG Tablet PO ×2 (14:03→17:56)
[2022-03-16] MEDS: Ascorbic Acid 500 MG Tablet PO (17:57)
--- NOTE | 2022-03-16 20:35 | NURSING ---
pt encouraged to cough & deep breathe
[2022-03-16] MEDS: Senna/Docusate Sodium 1 Tablet 2 TABLET PO (20:54)
--- NOTE | 2022-03-17 | RAD_ITS ---
EXAM: XR CHEST, 1 VIEW CLINICAL INDICATION: Hypoxia TECHNIQUE: Frontal view of the chest. This report was created using [employer] report generation technology. COMPARISON: None. FINDINGS: LUNGS AND PLEURAL SPACES: Unremarkable. No consolidation or edema. No pneumothorax. No effusion. HEART: Unremarkable. Cardiac silhouette not enlarged. MEDIASTINUM: Central airways and mediastinal contour are unremarkable. BONES/JOINTS: Scoliosis of the thoracic spine convex to the left. SOFT TISSUES: Unremarkable. RAD/Chest 1 View (Portable) IMPRESSION: No acute cardiopulmonary abnormality. Electronically Signed: Jim Mon MD at 0:50 EDT ,
--- NOTE | 2022-03-17 00:04 | NURSING ---
DR PERRY NOTIFIED OF PT LOW O2 SATS, DIMINISHED LUNG SOUNDS, BEING PLACED OF O2 2L - NEW ORDER RECEIVED
[2022-03-17 03:00] VITALS: BP 157/60; PULSE 94; RESP 18; TEMP 36.8; O2SAT 94
[2022-03-17] MEDS: Acetaminophen 500 MG Tablet 1000 MG PO ×2 (05:29→13:12)
[2022-03-17 06:22] LABS: Absolute Lymphocyte Count 0.74 X10^3/uL (0.83-4.51); Absolute Neutrophil Count 4.6 X10^3/uL (2.0-7.7); Basophil# 0.02 X10^3/uL; Basophil% 0.3 % (0-1); Eosinophil# 0.37 X10^3/uL; Hematocrit 31.4 % (37-47); Hemoglobin 9.7 g/dL (12.0-15.0); Lymphocyte # 0.74 X10^3/ul (0.83-4.51); Lymphocyte % 12.1 % (19-41); Mean Corp Hgb Conc 30.9 g/dL (32-36); Mean Corpuscular Hgb 28.9 pg (27.0-32.0); Mean Corpuscular Volume 93.5 fL (81-99); Mean Platelet Vol. 11.4 fl (6.2-12.0); Monocyte# 0.37 X10^3/uL; NRBC Flagged by Analyzer 0 % (0-5); Neutrophil % 75.3 % (47-70); Platelet Count 125 K/mm3 (150-450); RBC Distribution Width CV 13.9 % (11.6-14.6); RBC Distribution Width SD 47.4 fl (35.1-43.9); Red Blood Count 3.36 M/mm3 (4.2-5.4); White Blood Count 6.1 K/mm3 (4.4-11.0)
[2022-03-17 06:51] LABS: ALB/GLOB Ratio 0.9 RATIO (0.9-2.4); AST(SGOT) 83 U/L (15-37); Alanine Aminotransfer ALT/SGPT 25 U/L (13-56); Albumin, Serum 2.5 g/dL (3.2-5.0); Alkaline Phosphatase 64 U/L (45-117); Anion Gap 4 (5-15); BUN 21 mg/dL (7-18); BUN/Creat Ratio 18.6 RATIO (10-20); Chloride 114 mmol/L (98-107); Creatinine, Serum 1.13 mg/dL (0.55-1.02); EST Glomerular Filtration Rate 48 mL/min (>60); Est Glom Filt Rate - Afr Amer 59 mL/min (>60); Estimated Creatinine Clearance 27.74 ml/min; Globulin 2.9 g/dL (2.2-4.2); Glucose 106 mg/dL (74-106); Potassium 4.1 mmol/L (3.5-5.1); Protein, Total 5.4 g/dL (6.4-8.2); Sodium Level 142 mmol/L (136-145)
[2022-03-17 07:30] VITALS: O2SAT 97
[2022-03-17] MEDS: Aspirin 81 MG TAB.CHEW PO (08:18)
[2022-03-17] MEDS: Calcium Carbonate 500 MG Tablet PO ×2 (08:18→13:12)
[2022-03-17] MEDS: Ascorbic Acid 500 MG Tablet PO (08:19)
--- NOTE | 2022-03-17 08:21 | PCM.TXEXTCAR ---
Diet Diet Order/Speech Therapy: 03/15/22 13:27 Diet: Regular - General Is pt able to select menu?: Yes Routine Orders/Code Status Suppository Type: Dulcolax 10mg Suppository Frequency: Daily PRN Routine Lab Work: CBC (within 3 days) and - (CMP within 3 days) Code Status: DNRCC-A Wound(s) left elbow: Wound Type: Abrasion left ankle: Wound Type: Abrasion LEFT HIP: Wound Type: Surgical Incision Therapies Weight Bearing: Weight bearing as tolerated Problem/Diagnosis (1) Closed fracture of left hip: Status: Acute Code(s): S72.002A - Fracture of unspecified part of neck of left femur, initial encounter for closed fracture Allergies/Procedures Done in Hospital Allergies amlodipine [From Norvasc] Allergy (Verified 03/14/22 15:21) Anaphylaxis benazepril Allergy (Verified 03/14/22 15:21) Anaphylaxis ciprofloxacin [From Cipro] Allergy (Verified 03/14/22 15:21) Anaphylaxis metoprolol Allergy (Verified 03/14/22 15:21) MADE HER FEEL ODD prednisone Allergy (Verified 03/14/22 15:21) Anaphylaxis Procedures: - (Left cemented hip hemiarthroplasty 03/15/22) Type of Care/Length of Stay Estimated LOS: Convalescent Care Less Than 30 days Type of Care Needed: Skilled Rehab Potential: Good Prognosis: Good Additional Orders/Day of Discharge Day of Discharge: 03/17/22 Discharge Plan Admission Admit Date/Time: 03/14/22 16:43 Primary Reason for Your Visit: Acute left hip fracture Attending Provider: Connie Narayan Primary Care Provider: Ricky Avila Consulting Providers: James Hyatt ; Emely David Instructions Additional Instructions / Restrictions: Maintain surgical dressing x7 days if no saturation, then okay to leave open to air. Okay to shower with dressing on. No tub soaks. Posterior hip precautions as instructed by physical therapy. Discharge Orders/Prescriptions Prescriptions: New sennosides-docusate sodium [Stool Softener-Stimulant Laxat] 8.6-50 mg Tablet 2 tab PO BID Qty: 0 0RF acetaminophen 500 mg Tablet 1,000 mg PO Q8 Qty: 0 0RF ascorbic acid (vitamin C) 500 mg Tablet 500 mg PO BIDCM Qty: 0 0RF ferrous sulfate [FeroSul] 325 mg (65 mg iron) Tablet 325 mg PO 1200,1700 Qty: 0 0RF calcium carbonate 200 mg calcium (500 mg) Tablet,Chewable 500 mg PO TIDCM Qty: 0 0RF aspirin 81 mg Tablet,Chewable 81 mg PO BIDCM Qty: 0 0RF Continued lisinopril 20 mg tablet 10 mg PO DAILY Label Comments: take 1 tablet by mouth once daily tramadol 50 mg Tablet 50 mg PO BID Referrals / Follow Up: Ricky Avila DO [Primary Care Provider] - James Hyatt DO [Med Staff - Active Staff] - 03/30/22 Disposition Disposition (needs filled in before D/C Order can be placed): Longterm Facility (1) Closed fracture of left hip Qualifiers: Encounter type: initial encounter Qualified Code(s): S72.002A - Fracture of unspecified part of neck of left femur, initial encounter for closed fracture
--- NOTE | 2022-03-17 08:29 | DS.PCM_ITS ---
Providers Date of Admission: 03/14/22 Date of Discharge: 03/17/22 Primary Care Physician: Dr. Ricky Avila, Consultations 03/14/22 17:52 Consult: Orthopedics Routine Consulting Provider: James Hyatt Reason for Consult: L hip fracture, fall. EMERGENT Consult: No MD Notified: Yes Date Notified: 03/14/22 Time Notified: 16:45 Method of Notification: ED Physician Initiated Reason For Visit: FALL, L HIP FRACTURE Diagnosis Discharge Diagnosis (1) Closed fracture of left hip: Status: Acute Code(s): S72.002A - Fracture of unspecified part of neck of left femur, initial encounter for closed fracture Qualifiers: Encounter type: initial encounter Qualified Code(s): S72.002A - Fracture of unspecified part of neck of left femur, initial encounter for closed fracture Medications at Discharge Home Medications lisinopril 20 mg tablet 10 mg PO DAILY 03/14/22 tramadol 50 mg tablet 50 mg PO BID 03/14/22 acetaminophen 500 mg tablet 1,000 mg PO Q8 #0 tabs 03/17/22 ascorbic acid (vitamin C) 500 mg tablet 500 mg PO BIDCM #0 tabs 03/17/22 aspirin 81 mg chewable tablet 81 mg PO BIDCM #0 tabs 03/17/22 calcium carbonate 200 mg calcium (500 mg) chewable tablet 500 mg PO TIDCM #0 tabs 03/17/22 ferrous sulfate 325 mg (65 mg iron) tablet (FeroSul) 325 mg PO 1200,1700 #0 tabs 03/17/22 sennosides 8.6 mg-docusate sodium 50 mg tablet (Stool Softener-Stimulant Laxative) 2 tab PO BID #0 tabs 03/17/22 Hospital Course Operations None Procedures - (Left cemented hip hemiarthroplasty 03/15/22) Summary of Care Provided Minutes Spent on Discharge: 35 Hospital Course: 86-year-old female past medical history hypertension who presented to the emergency room after mechanical fall from a single step height onto her left side while she was trimming a hedge. Patient felt immediate pain in her left hip. She was seen in the emergency room where x-rays of the left hip showed displaced subcapital femoral neck fracture. She was admitted to the [facility], orthopedics was consulted from the ED. She underwent left cemented hemiarthroplasty on 03/15/22. Postoperatively, patient's pain was controlled. She had a drop in hemoglobin believed to be secondary to hemodilution. She was started on oral iron. PT and OT and skilled for discharge to shelter facility. She will follow-up with orthopedics as scheduled in the outpatient for x-rays. Patient was seen on the day of discharge. Denied any new complaints. No acute events overnight. Physical Exam Narrative Physical exam: General: Alert, Oriented x3, Cooperative, No apparent distress, appears frail HEENT: Atraumatic Oral: Moist Mucosa Neck: Supple Lungs: Clear to auscultation Cardiovascular: HS I+II, regular, no murmurs Abdomen: Bowel Sounds Present, Soft, Non Tender Extremities: Dressing over the left hip, intact, tenderness on palpation of the left hip. Skin: No rashes, No breakdown Neurological: Grossly intact Psych/Mental Status: Appropriate Weight / BMI Weight Weight: 68.2 kg Body Mass Index (BMI) 25.4 ABG / Lab / Microbiology Data Result Diagrams: 03/17/22 05:45 03/17/22 05:45 Laboratory: Laboratory Results - last 24 hr 03/17/22 05:45: WBC 6.1, RBC 3.36 L, Hgb 9.7 L, Hct 31.4 L, MCV 93.5, MCH 28.9, MCHC 30.9 L, RDW Std Deviation 47.4 H, RDW Coeff of Ted 13.9, Plt Count 125 L, MPV 11.4, Immature Gran % (Auto) 0.300, Neut % (Auto) 75.3 H, Lymph % (Auto) 12.1 L, [place] % (Auto) 6.0, Eos % (Auto) 6.0 H, Baso % (Auto) 0.3, Absolute Neuts (auto) 4.6, Absolute Lymphs (auto) 0.74 L, Nucleated RBC % 0 03/17/22 05:45: Sodium 142, Potassium 4.1, Chloride 114 H, Carbon Dioxide 24.0, Anion Gap 4 L, BUN 21 H, Creatinine 1.13 H, Estim Creat Clear Calc 27.74, Est GFR (MDRD) Af Amer 59 L, Est GFR (MDRD) Non-Af 48 L, BUN/Creatinine Ratio 18.6, Glucose 106, Calcium 9.0, Total Bilirubin 0.80, AST 83 H, ALT 25, Alkaline Phosphatase 64, Total Protein 5.4 L, Albumin 2.5 L, Globulin 2.9, Albumin/Globulin Ratio 0.9 Radiography Diagnostic Testing: Radiology Impression Chest X-Ray 03/17/22 00:00 IMPRESSION: No acute cardiopulmonary abnormality. Electronically Signed: Jim Mon MD at 0:50 EDT , D/C Instructions Discharge Diet: 2000 mg Sodium Diet Discharge Activity: Return to Normal Activity Meaningful Use Info Meaningful Use Diagnoses (Choose all that apply): None applicable Discharge Plan Admission Admit Date/Time: 03/14/22 16:43 Primary Reason for Your Visit: Acute left hip fracture Attending Provider: Connie Narayan Primary Care Provider: Ricky Avila Consulting Providers: James Hyatt ; Emely David Instructions Additional Instructions / Restrictions: Maintain surgical dressing x7 days if no saturation, then okay to leave open to air. Okay to shower with dressing on. No tub soaks. Posterior hip precautions as instructed by physical therapy. Discharge Orders/Prescriptions Prescriptions: New sennosides-docusate sodium [Stool Softener-Stimulant Laxat] 8.6-50 mg Tablet 2 tab PO BID Qty: 0 0RF acetaminophen 500 mg Tablet 1,000 mg PO Q8 Qty: 0 0RF ascorbic acid (vitamin C) 500 mg Tablet 500 mg PO BIDCM Qty: 0 0RF ferrous sulfate [FeroSul] 325 mg (65 mg iron) Tablet 325 mg PO 1200,1700 Qty: 0 0RF calcium carbonate 200 mg calcium (500 mg) Tablet,Chewable 500 mg PO TIDCM Qty: 0 0RF aspirin 81 mg Tablet,Chewable 81 mg PO BIDCM Qty: 0 0RF Continued lisinopril 20 mg tablet 10 mg PO DAILY Label Comments: take 1 tablet by mouth once daily tramadol 50 mg Tablet 50 mg PO BID Referrals / Follow Up: Ricky Avila DO [Primary Care Provider] - James Hyatt DO [Med Staff - Active Staff] - 03/30/22 Disposition Disposition (needs filled in before D/C Order can be placed): [facility] Facility Charges/Coding Visit Charges Inpatient E&M: 34299 Disch Hosp
[2022-03-17 09:00] VITALS: BP 139/81; PULSE 79; RESP 18; TEMP 36.8; O2SAT 92
[2022-03-17 10:00] VITALS: O2SAT 93
--- NOTE | 2022-03-17 10:21 | PHA.DC.MR ---
Pharmacy Service has performed discharge medication reconciliation for this patient. The patient's discharge medication list was reviewed for discrepancies and discrepancies were resolved. Home Medications lisinopril 20 mg tablet 10 mg PO DAILY 03/14/22 tramadol 50 mg tablet 50 mg PO BID 03/14/22 acetaminophen 500 mg tablet 1,000 mg PO Q8 #0 tabs 03/17/22 ascorbic acid (vitamin C) 500 mg tablet 500 mg PO BIDCM #0 tabs 03/17/22 aspirin 81 mg chewable tablet 81 mg PO BIDCM #0 tabs 03/17/22 calcium carbonate 200 mg calcium (500 mg) chewable tablet 500 mg PO TIDCM #0 tabs 03/17/22 ferrous sulfate 325 mg (65 mg iron) tablet (FeroSul) 325 mg PO 1200,1700 #0 tabs 03/17/22 sennosides 8.6 mg-docusate sodium 50 mg tablet (Stool Softener-Stimulant Laxative) 2 tab PO BID #0 tabs 03/17/22
--- NOTE | 2022-03-17 10:52 | CASEMGMT ---
Social Work Pt notified she will be transferred to TCU today. Orders and med list faxed. SW asked pt if she would like anyone to be notified of her transfer and she declined. Pt stated she had just spoken to her daughter and updated her on her move to TCU this morning. KRISTA Gee
[2022-03-17] MEDS: Senna/Docusate Sodium 1 Tablet 2 TABLET PO (11:12)
[2022-03-17] MEDS: Lisinopril 10 MG Tablet PO (11:13)
[2022-03-17] MEDS: Ferrous Sulfate 325 MG Tablet PO (11:13)
[2022-03-17 15:24] VITALS: BP 145/71; PULSE 81; RESP 16; TEMP 36.9; O2SAT 95
== END 2022-03-17 15:36 | disposition skilled nursing facility (03) | DRG 522 ==
LOC: ED 16:48 → MS3 17:15
PROVIDERS: Physician Assistant; Student in an Organized Health Care Education/Training Program; Admitting Provider Family Medicine; Emergency Provider Emergency Medicine; PCP Family Medicine; Visit Provider Internal Medicine
PROC: 0SRS0J9 Replacement of Left Hip Joint, Femoral Surface with Synthetic Substitute, Cemented, Open Approach (ICD-10-PCS; CPT 27125; principal; 2022-03-15 07:45)
DX: S72.012A Unspecified intracapsular fracture of left femur, initial encounter for closed fracture (principal); N17.9 Acute kidney failure, unspecified; N18.31 Chronic kidney disease, stage 3a; I12.9 Hypertensive chronic kidney disease with stage 1 through stage 4 chronic kidney disease, or unspecified chronic kidney disease; M16.12 Unilateral primary osteoarthritis, left hip; S90.512A Abrasion, left ankle, initial encounter; W18.09XA Striking against other object with subsequent fall, initial encounter; S80.02XA Contusion of left knee, initial encounter; Y92.007 Garden or yard of unspecified non-institutional (private) residence as the place of occurrence of the external cause; Y93.H2 Activity, gardening and landscaping; R53.81 Other malaise; Z20.822 Contact with and (suspected) exposure to COVID-19; Z66 Do not resuscitate; Z87.891 Personal history of nicotine dependence; Z96.653 Presence of artificial knee joint, bilateral; Z96.641 Presence of right artificial hip joint
CPT/HCPCS: 36415; 71045; 73502; 73560; 80053; 85025; 85610; 86850; 86900; 86901; 87426; 88307; 88311; 93005; 97162; 97166; 97535; 99285; C1776; J7030; A4216; J2405

== ENCOUNTER 2022-03-17 15:45 | Inpatient (IN) | payer MEDICARE, SELFPAY ==
[2022-03-17 15:51] VITALS: BP 159/76; PULSE 102; PULSE 94; RESP 16; RESP 18; TEMP 36.8; O2SAT 91; O2SAT 95; BMI 27.6
[2022-03-17] MEDS: Ascorbic Acid 500 MG Tablet PO (18:33)
[2022-03-17] MEDS: Ferrous Sulfate 325 MG Tablet PO (18:33)
[2022-03-17] MEDS: Calcium Carbonate 500 MG Tablet PO (18:33)
[2022-03-17] MEDS: Aspirin 81 MG TAB.CHEW PO (18:34)
[2022-03-17] MEDS: Senna/Docusate Sodium 1 Tablet 2 TABLET PO (18:34)
[2022-03-17] MEDS: traMADol 50 MG Tablet PO (18:36)
[2022-03-17] MEDS: Acetaminophen 500 MG Tablet 1000 MG PO (20:05)
--- NOTE | 2022-03-17 20:13 | HP.PCM_ITS ---
HPI - General General Date of Admission: 03/17/22 Date of Service: 03/17/22 Chief Complaint: Here for rehab. HPI Narrative 03/14/2022 SHANON JADE, is a 86 Female who presents to [facility] Emergency Department with fall. 03/14/2022 EKG wide QRS rhythm, consider sinus tachycardia, left bundle branch block. Tripped, fell, landed on left hip, unable to get up. X-ray shows left femoral neck fracture. 03/14/2022 Admit to Hospital. Prepare for surgery, pain control. 03/15/2022 Pain improved. Hold Lisinopril for acute kidney injury. 03/15/2022 Dr. Hyatt performed left cemented hip hemiarthroplasty. 03/16/2022 Pain fair control. Able to set up, out of bed. Tylenol, Oxycodone for pain. PT/OT for debility. Aspirin twice daily DVT prophylaxis per Orthopedics. Iron, Vitamin C for postoperative anemia. 03/17/2022 Admit to TCU with debility, here for rehabilitation, strengthening, prior to discharge home with . [facility] Medical History (Updated 03/17/22 @ 20:[address] Phil Reyes MD) Former smoker Former tobacco use HTN (hypertension) Hx SBO Hypertension Osteoarthritis Home Medications lisinopril 20 mg tablet 10 mg PO DAILY BP 03/14/22 [History Last Taken Unknown] tramadol 50 mg tablet 50 mg PO BID pain 03/14/22 [History Last Taken Unknown] acetaminophen 500 mg tablet 1,000 mg PO Q8 pain 03/17/22 [History Last Taken Unknown] ascorbic acid (vitamin C) 500 mg tablet 500 mg PO BIDCM supplement 03/17/22 [History Last Taken Unknown] aspirin 81 mg chewable tablet 81 mg PO BID heart health 03/17/22 [History Last Taken Unknown] calcium carbonate 200 mg calcium (500 mg) chewable tablet 500 mg PO TIDCM supplement 03/17/22 [History Last Taken Unknown] ferrous sulfate 325 mg (65 mg iron) tablet (FeroSul) 325 mg PO 1200,1700 iron 03/17/22 [History Last Taken Unknown] sennosides 8.6 mg-docusate sodium 50 mg tablet (Stool Softener-Stimulant Laxative) 2 tab PO BID stool softener 03/17/22 [History Last Taken Unknown] Allergy/AdvReac Type Severity Reaction Status Date / Time amlodipine [From Norvasc] Allergy Anaphylaxis Verified 03/14/22 15:21 benazepril Allergy Anaphylaxis Verified 03/14/22 15:21 ciprofloxacin [From Cipro] Allergy Anaphylaxis Verified 03/14/22 15:21 metoprolol Allergy MADE HER Verified 03/14/22 15:21 FEEL ODD prednisone Allergy Anaphylaxis Verified 03/14/22 15:21 Family History Mother Dementia Father Cancer Hx Lung CA with concurrent tobacco use history. Surgical History (Updated 03/17/22 @ 20:[address] Phil Reyes MD) H/O cataract extraction History of bowel resection History of hysterectomy History of left hip hemiarthroplasty History of lumbar surgery History of total bilateral knee replacement History of total right hip replacement S/P right rotator cuff repair Social History household members: spouse Smoking Status: Former smoker how long ago did patient quit smoking: Quit 1984, smoked age 19 until quit ~ 1 ppd. alcohol intake: current alcohol intake frequency: 0-2 drinks per day Alcohol type: wine details: Drinks one glass wine with dinner nightly. substance use type: does not use ROS Constitutional Constitutional: Denies chills, fever(s) or weight gain ENT HEENT: Denies headache(s), nasal congestion or nasal discharge Cardiovascular Cardiovascular: Denies chest pain or palpitations Respiratory/Chest Respiratory/Chest: Denies cough, excessive phlegm production or shortness of breath with exertion Gastrointestinal Gastrointestinal: Denies abdominal pain, nausea or vomiting Genitourinary Genitourinary: Denies dysuria Musculoskeletal Musculoskeletal: Denies joint pain or joint swelling Integumentary Integumentary: Denies rash or wounds Neurologic Neurologic: Denies focal weakness, numbness or tingling Psychiatric Psychiatric: Denies anxiety, auditory hallucinations, depression, homicidal ideation or suicidal ideation Vital Signs Vital Signs Vital Signs: 03/17/22 15:51 03/17/22 15:51 Temperature 98.2 F Temperature Source Oral Pulse Rate 102 H 94 Pulse Rhythm Irregular Pulse Strength Normal (2+) Respiratory Rate 16 18 Respiratory Effort Normal Respiratory Depth Normal Respiratory Pattern Normal Blood Pressure 159/76 H Blood Pressure Mean 103 Blood Pressure Source Monitor Blood Pressure Position Semi-Fowlers Blood Pressure Location Right Arm Pulse Ox 91 95 Oxygen Delivery Method Room Air Room Air Weight Weight: 68.5 kg Body Mass Index (BMI) 27.6 Physical Exam Const alert General Appearance: cooperative HEENT normocephalic Eyes PERRL and EOMs intact bilaterally Neck supple, no JVD and no carotid bruits Resp normal respiratory effort, normal air movement and clear to auscultation bilaterally Cardio regular rate and regular rhythm GI normal to inspection, nondistended, normoactive bowel sounds, non-tender and non-distended Extremity normal capillary refill General Extremity: Negative for edema Skin no rashes or lesions noted General Skin Exam: no breakdown Psych affect normal Appearance: appropriate Assessment & Plan Assessment/Plan (1) Debility: (2) Closed fracture of left hip: QUALIFIERS: Encounter type: initial encounter Qualified Code(s): S72.002A - Fracture of unspecified part of neck of left femur, initial encounter for closed fracture (3) Acute kidney injury: (4) Hypertension: (5) Chronic kidney disease, stage 3b: PLAN: Plan 86 year old female with below past medical history hospitalized for left hip fracture, underwent left hip hemiarthroplasty 03/15/[address] Hyatt, admitted to TCU with debility, here for rehabilitation, strengthening, prior to discharge home with . * Debility - PT/OT. * Pain - Tylenol 1000mg q8, Tramadol 50mg bid. * Bowel - senna/colace 2 tablets bid, Dulcolax 10mg pr daily prn. * Adult immunization - Administer pneumonia vaccine, covid19 vaccine, flu vaccine as appropriate. * DVT prophylaxis - Aspirin 81mg bidcm. * Iron deficiency anemia - Ferrous sulfate 325mg bid, Vitamin C 500mg bidcm. * Calcium deficiency - TUMS 500mg tidcm. * Hypertension - Lisinopril 10mg daily.
[2022-03-18 05:00] VITALS: BP 154/86; PULSE 104; RESP 16; TEMP 36.8; O2SAT 93
[2022-03-18 05:29] LABS: Absolute Neutrophil Count 5.2 X10^3/uL (2.0-7.7); Basophil# 0.04 X10^3/uL; Basophil% 0.6 % (0-1); Eosinophil# 0.16 X10^3/uL; Eosinophils% 2.4 % (0-5); Hematocrit 31.2 % (37-47); Lymphocyte % 11.8 % (19-41); Mean Corp Hgb Conc 32.1 g/dL (32-36); Mean Corpuscular Hgb 29.4 pg (27.0-32.0); Mean Corpuscular Volume 91.8 fL (81-99); Mean Platelet Vol. 10.9 fl (6.2-12.0); Monocyte# 0.52 X10^3/uL; Monocyte% 7.7 % (0-10); NRBC Flagged by Analyzer 0 % (0-5); Neutrophil # 5.24 X10^3/uL (2.7-7.7); Neutrophil % 77.2 % (47-70); Platelet Count 148 K/mm3 (150-450); RBC Distribution Width CV 13.8 % (11.6-14.6); RBC Distribution Width SD 46.4 fl (35.1-43.9); White Blood Count 6.8 K/mm3 (4.4-11.0)
[2022-03-18] MEDS: traMADol 50 MG Tablet PO ×2 (05:46→18:03)
[2022-03-18] MEDS: Acetaminophen 500 MG Tablet 1000 MG PO ×3 (05:46→21:44)
[2022-03-18] MEDS: Lisinopril 10 MG Tablet PO (05:46)
[2022-03-18 05:56] LABS: Anion Gap 4 (5-15); BUN 21 mg/dL (7-18); BUN/Creat Ratio 20.4 RATIO (10-20); Calcium,Total 8.9 mg/dL (8.5-10.1); Chloride 108 mmol/L (98-107); Creatinine, Serum 1.03 mg/dL (0.55-1.02); EST Glomerular Filtration Rate 54 mL/min (>60); Est Glom Filt Rate - Afr Amer 65 mL/min (>60); Estimated Creatinine Clearance 30.43 ml/min; Glucose 115 mg/dL (74-106); Sodium Level 139 mmol/L (136-145)
[2022-03-18] MEDS: Ondansetron ODT 4 MG Tablet PO (08:47)
--- NOTE | 2022-03-18 09:00 | RAD_ITS ---
INDICATION: abdominal pain, nausea, vomiting. EXAMINATION/TECHNIQUE: X-RAY - XR Abdomen 1 View COMPARISON: None FINDINGS: BOWEL GAS PATTERN: Non-obstructive. No bowel or stomach distention. FREE AIR: Not assessed on a single supine view. ORGANOMEGALY: Not seen. CALCIFICATIONS: No abnormal calcifications observed. LOWER CHEST: No acute pathology. BONES AND SOFT TISSUES: Dextroscoliosis of the thoracolumbar spine visualized with apex along the right lateral aspect of the L1 to intervertebral disc space. Extensive degenerative changes are visualized. RAD/Abdomen Single View IMPRESSION: Non-obstructive bowel gas pattern. Electronically Signed: Woody Natarajan MD at 9:12 EDT ,
[2022-03-18] MEDS: Calcium Carbonate 500 MG Tablet PO ×3 (09:37→16:59)
[2022-03-18] MEDS: Ascorbic Acid 500 MG Tablet PO ×2 (09:38→16:59)
[2022-03-18] MEDS: Aspirin 81 MG TAB.CHEW PO ×2 (09:38→16:56)
[2022-03-18] MEDS: Tuberculin,Purif.prot.deriv. 50 TU/ML Vial 0.1 ML ID (09:38)
[2022-03-18 14:24] VITALS: BP 151/77; PULSE 76; RESP 16; TEMP 35.7; O2SAT 92
--- NOTE | 2022-03-18 16:09 | CASEMGMT ---
Social Work Attempted to complete assessment with pt but pt asleep. Will revisit. Azalia Donis, TRUCK MANAGER SENIOR COST ESTIMATOR
[2022-03-19] MEDS: Acetaminophen 500 MG Tablet 1000 MG PO ×3 (05:16→20:22)
[2022-03-19] MEDS: traMADol 50 MG Tablet PO ×2 (05:17→18:38)
[2022-03-19] MEDS: Lisinopril 10 MG Tablet PO (05:17)
[2022-03-19] MEDS: Calcium Carbonate 500 MG Tablet PO ×2 (08:11→18:03)
[2022-03-19] MEDS: Aspirin 81 MG TAB.CHEW PO ×2 (08:12→18:38)
[2022-03-19] MEDS: Ascorbic Acid 500 MG Tablet PO ×2 (08:12→18:38)
[2022-03-19] MEDS: Ondansetron ODT 4 MG Tablet PO ×2 (08:20→18:02)
--- NOTE | 2022-03-19 08:25 | NURSING ---
WALKED INTO PT ROOM AND PT WAS THROWING UP YELLOW LIQUID. PT STATED SHE DIDNT FEEL BAD. PRN ZOFRAN GIVEN. WILL CONTINUE TO MONITOR.
--- NOTE | 2022-03-19 11:41 | NURSING ---
PT AND FAMILY UPDATED ON POSITIVE COVID PT.
--- NOTE | 2022-03-19 12:08 | CASEMGMT ---
Addendum entered by Azalia Donis 03/19/22 14:57: IDT agreed with pt's request for DC WEDNESDAY 03/21 with [facility] PT/OT. Faxed referral. No DME needs. Dtr to transport. Plan: DC home with and dtr support 03/21, [facility] PT/OT Original Note: Social Work Met with patient to complete initial assessment. Introduced self and role. Discussed code status and MOLST form. Pt confirms DNR-CCA, no intubation. MOLST communicated to , placed in chart. Explained [facility] insurance with NRD 03/20 and continued stay is not guaranteed. Pt expressed wanting to DC home 03/22. SW advised for pt to work with therapy today again, then SW to collaborate with IDT on setting DC date. Pt agreeable. Pt voiced she would like to do outpatient therapy at [facility] in [place]. SW to make DC orders as needed. Will continue to follow. Azalia Donis, FAMILY SERVICES ASSISTANT SEAT COVER CUTTER
--- NOTE | 2022-03-19 12:11 | CASEMGMT ---
SW asked pt to have family bring in advanced directives. Pt agrees.
--- NOTE | 2022-03-19 13:35 | PHA.CONS_ITS ---
TCU RX Drug Regimen Review Subjective: [86 YOF Admitted to TCU on 03/17/22 S/P hemiarthroplasty. Admitted for rehab and strengthening prior to discharge. Objective: Allergies amlodipine [From Norvasc] Allergy (Verified 03/14/22 15:21) Anaphylaxis benazepril Allergy (Verified 03/14/22 15:21) Anaphylaxis ciprofloxacin [From Cipro] Allergy (Verified 03/14/22 15:21) Anaphylaxis metoprolol Allergy (Verified 03/14/22 15:21) MADE HER FEEL ODD prednisone Allergy (Verified 03/14/22 15:21) Anaphylaxis Current Medications Generic Name Dose Route Start Last Admin Trade Name Freq PRN Reason Stop Dose Admin Acetaminophen 1,000 mg 03/17/22 22:00 03/19/22 05:16 Acetaminophen 500 Mg Tablet PO 1,000 mg Q8 [facility] Administration Ascorbic Acid 500 mg 03/17/22 17:00 03/19/22 08:12 Ascorbic Acid 500 Mg Tablet PO 500 mg BIDCM ADRIANA Administration Aspirin 81 mg 03/17/22 17:00 03/19/22 08:12 Aspirin 81 Mg Tab.Chew PO 81 mg BIDCM [facility] Administration Bisacodyl 10 mg 03/17/22 15:58 Bisacodyl 10 Mg Suppository RC DAILY PRN Constipation Calcium Carbonate 500 mg 03/17/22 17:45 03/19/22 11:14 Calcium Carbonate 500 Mg Tablet PO Not Given TIDCM [facility] Ferrous Sulfate 325 mg 03/17/22 17:00 03/19/22 11:12 Ferrous Sulfate 325 Mg Tablet PO Not Given 1200,1700 [facility] Lisinopril 10 mg 03/18/22 06:00 03/19/22 05:17 Lisinopril 10 Mg Tablet PO 10 mg DAILY [facility] Administration Ondansetron HCl 4 mg 03/18/22 07:51 03/19/22 08:20 Ondansetron Odt 4 Mg Tablet PO 4 mg Q8H PRN PRN Administration NAUSEA/VOMITING Senna/Docusate Sodium 2 tablet 03/17/22 18:00 03/19/22 05:16 Senna/Docusate Sodium 1 Tablet PO Not Given BID [facility] Tramadol HCl 50 mg 03/17/22 18:00 03/19/22 05:17 Tramadol 50 Mg Tablet PO 50 mg BID ADRIANA Administration Tuberculin PPD 0.1 ml 03/25/22 10:00 Tuberculin,Purif.Prot.Deriv. 50 Tu/Ml Vial ID 03/25/22 10:01 X1 ONE Problem List (Last Reviewed 03/17/22 @ 20:[address] Phil Reyes MD) Chronic kidney disease, stage 3b (Acute) Hypertension (Chronic) Acute kidney injury (Acute) Debility (Acute) Closed fracture of left hip (Acute) Vital Signs Temp Pulse Resp BP Pulse Ox O2 Del Method 96.3 F L 76 16 151/77 H 92 Room Air 03/18/22 14:24 03/18/22 14:24 03/18/22 14:24 03/18/22 14:24 03/18/22 14:24 03/18/22 14:24 Oxygen Delivery Method Room Air Weight: 68.5 kg Body Mass Index (BMI) 27.6 Sodium 139 mmol/L (136-145) 03/18/22 05:12 Potassium 4.0 mmol/L (3.5-5.1) 03/18/22 05:12 Chloride 108 mmol/L (98-107) H 03/18/22 05:12 Carbon Dioxide 27.0 mmol/L (21.0-32.0) 03/18/22 05:12 Anion Gap 4 (5-15) L 03/18/22 05:12 BUN 21 mg/dL (7-18) H 03/18/22 05:12 Creatinine 1.03 mg/dL (0.55-1.02) H 03/18/22 05:12 Est GFR (MDRD) Af Amer 65 mL/min (>60) 03/18/22 05:12 Est GFR (MDRD) Non-Af 54 mL/min (>60) L 03/18/22 05:12 BUN/Creatinine Ratio 20.4 RATIO (10-20) H 03/18/22 05:12 Glucose 115 mg/dL (74-106) H 03/18/22 05:12 Assessment/Plan: 1. Pain: Tylenol 1000mg PO Q8h, Tramadol 50mg PO BID. Per EMR review. pain appears under control, no reports of increased pain at this time. Please continue to monitor for increased/decreased S/S pain, renal function (CrCl 30mL/min, no tramadol adjustments needed at this time), S/S oversedation, liver function (LFT's normal from 03/2022.) 2. HTN: Lisinopril 10mg PO Daily. Please continue to monitor BP (151-159/76-77), renal function, potassium (last K= 4.0). SBP remains elevated, consider increasing lisinopril if elevated BP persists. 3. DVT Prophylaxis: Aspirin 81mg Po BIDCM. Please continue to monitor H/H ( hgb 10/ Hct 31.2% 03/18/22), S/S bleeding and bruising, S/S blood clot formation given recent surgery. 4. Bowel Regimen: Senna/Docusate 2 tab PO BID, Dulcolax 10mg CA Daily PRN. Please continue to monitor for S/S constipation and/or diarrhea. Per EMR, pt has not had a bowel movement since admission. Could consider administering PRN Dulcolax if patient does not have a bowel movement in 24-28hrs, especially given Tramadol use. 5. Nausea/Vomiting: Zofran 4mg PO Q8h PRN. Please continue to monitor for improvement in nausea symptoms, vomiting. Per MAR, the patient had a vomiting episode 03/19/22, and has required 2 doses over the past 24hrs. 6. Iron deficiency Anemia: Ferrous sulfate 325mg PO BID, Vitamin C 500mg PO BIDCM. Please continue to monitor H/H (currently stable), S/S bleeding, iron studies as clinically indicated. 7. General Wellness: Calcium carbonate 500mg PO TIDCM. Please continue to monitor labs as clinically indicated. Assessment/Plan for indications treated with psychotropic medications: -The patient is not currently being maintained on any psychotropic medications at this time. Medical chart and medication regimen reviewed. The following medication irregularities or issues were identified: 1. Lisinopril 10mg PO Daily. SBP remains elevated (range 151-159/76-77). Please consider increasing lisinopril if elevated BP persists, thank you. 2. Bowel: Per EMR, patient has not had a documented bowel movement. Could consider administering Dulcolax if patient does not have a bowel movement in 24- 48hrs. Date of Note:: 03/19/22
[2022-03-19 15:02] VITALS: BP 155/72; PULSE 80; RESP 17; TEMP 36.8; O2SAT 94
--- NOTE | 2022-03-19 19:37 | DS.PCM_ITS ---
Providers Date of Admission: 03/17/22 Primary Care Physician: Dr. Ricky Avila DO Reason For Visit: FALL/L. HIP FRACTURE Diagnosis Discharge Diagnosis (1) Debility: Status: Acute Code(s): R53.81 - Other malaise (2) Closed fracture of left hip: Status: Acute Code(s): S72.002A - Fracture of unspecified part of neck of left femur, initial encounter for closed fracture Qualifiers: Encounter type: initial encounter Qualified Code(s): S72.002A - Fracture of unspecified part of neck of left femur, initial encounter for closed fracture (3) Acute kidney injury: Status: Acute Code(s): N17.9 - Acute kidney failure, unspecified (4) Hypertension: Status: Chronic Code(s): I10 - Essential (primary) hypertension (5) Chronic kidney disease, stage 3b: Status: Acute Code(s): N18.32 - Chronic kidney disease, stage 3b Plan 86 year old female with below past medical history hospitalized for left hip fracture, underwent left hip hemiarthroplasty 03/15/[address] Hyatt, admitt ed to TCU with debility, here for rehabilitation, strengthening, prior to discharge home with . * Debility - PT/OT. * Pain - Tylenol 1000mg q8, Tramadol 50mg bid. * Bowel - senna/colace 2 tablets bid, Dulcolax 10mg pr daily prn. * Adult immunization - Administer pneumonia vaccine, covid19 vaccine, flu vaccine as appropriate. * DVT prophylaxis - Aspirin 81mg bidcm. * Iron deficiency anemia - Ferrous sulfate 325mg bid, Vitamin C 500mg bidcm. * Calcium deficiency - TUMS 500mg tidcm. * Hypertension - Lisinopril 10mg daily. Medications at Discharge Home Medications lisinopril 20 mg tablet 10 mg PO DAILY BP 03/14/22 acetaminophen 500 mg tablet 1,000 mg PO Q8 pain 03/17/22 ascorbic acid (vitamin C) 500 mg tablet 500 mg PO BIDCM supplement 03/17/22 calcium carbonate 200 mg calcium (500 mg) chewable tablet 500 mg PO TIDCM supple ment 03/17/22 aspirin 81 mg chewable tablet 81 mg PO BIDCM heart health 10 days #20 tabs 03/19/22 ferrous sulfate 325 mg (65 mg iron) tablet (FeroSul) 325 mg PO 1200,1700 iron 30 days #60 tabs 03/19/22 ondansetron 4 mg disintegrating tablet 4 mg PO Q8H PRN PRN NAUSEA/VOMITING 7 days #21 tabs 03/19/22 tramadol 50 mg tablet 50 mg PO BID pain 7 days #14 tabs 03/19/22 Hospital Course Operations - (Left hip hemiarthroplasty.) Procedures None Summary of Care Provided Minutes Spent on Discharge: 35 Hospital Course: 86 year old female with below past medical history hospitalized for left hip fracture, underwent left hip hemiarthroplasty 03/15/[address] Hyatt, admitted to TCU with debility, here for rehabilitation, strengthening, prior to discharge home with . Discharge home 03/21/2022 with and daughter support, Erick HAIRSTON PT/OT. Physical Exam Const alert General Appearance: cooperative HEENT normocephalic Eyes PERRL and EOMs intact bilaterally Neck supple, no JVD and no carotid bruits Resp normal respiratory effort, normal air movement and clear to auscultation bilaterally Cardio regular rate and regular rhythm GI normal to inspection, nondistended, normoactive bowel sounds, non-tender and non-distended Extremity normal capillary refill General Extremity: Negative for edema Skin no rashes or lesions noted General Skin Exam: no breakdown Psych affect normal Appearance: appropriate Weight / BMI Weight Weight: 68.5 kg Body Mass Index (BMI) 27.6 ABG / Lab / Microbiology Data Result Diagrams: 03/18/22 05:12 03/18/22 05:12 D/C Instructions Discharge Diet: No restrictions Discharge Activity: Return to Normal Activity, May Shower and Use Walker Weight Bearing Status: Weight bearing as tolerated Call your doctor if you observe: Fever of 101 or Higher, Inability to urinate, Inability to have a bowel movement, Shortness of breath, Dizziness, Fainting spells, Swelling in the ankles, Chest pain and Uncontrolled pain Additional Instructions: Discharge home 03/21/2022 with and daughter support, Erick HAIRSTON PT/OT. Please Follow Up With: James Hyatt DO When: As scheduled. Meaningful Use Info Meaningful Use Diagnoses (Choose all that apply): None applicable Discharge Plan Admission Admit Date/Time: 03/17/22 15:45 Primary Reason for Your Visit: Debility. Attending Provider: Phil Reyes Chi Primary Care Provider: Ricky Avila Instructions Additional Instructions / Restrictions: Discharge home 03/21/2022 with and daughter support, Erick HAIRSTON PT/OT. Discharge Orders/Prescriptions Prescriptions: New ondansetron 4 mg Tablet,Disintegrating 4 mg PO Q8H PRN PRN (Reason: NAUSEA/VOMITING) 7 Days Qty: 21 0RF Continued lisinopril 20 mg tablet 10 mg PO DAILY Label Comments: take 1 tablet by mouth once daily acetaminophen 500 mg tablet 1,000 mg PO Q8 ascorbic acid (vitamin C) 500 mg tablet 500 mg PO BIDCM calcium carbonate 200 mg calcium (500 mg) tablet,chewable 500 mg PO TIDCM tramadol 50 mg Tablet 50 mg PO BID 7 Days Qty: 14 0RF ferrous sulfate [FeroSul] 325 mg (65 mg iron) tablet 325 mg PO 1200,1700 30 Days Qty: 60 0RF aspirin 81 mg tablet,chewable 81 mg PO BIDCM 10 Days Qty: 20 0RF Discontinued sennosides-docusate sodium [Stool Softener-Stimulant Laxat] 8.6-50 mg tablet 2 tab PO BID Referrals / Follow Up: Ricky Avila DO [Primary Care Provider] - James Hyatt DO [Med Staff - Active Staff] - 03/30/22 1:30 pm Disposition Disposition (needs filled in before D/C Order can be placed): Home, Self Care
[2022-03-20] MEDS: Ondansetron ODT 4 MG Tablet PO ×3 (02:07→17:57)
[2022-03-20] MEDS: traMADol 50 MG Tablet PO ×2 (07:12→18:01)
[2022-03-20] MEDS: Acetaminophen 500 MG Tablet 1000 MG PO ×3 (07:13→21:02)
[2022-03-20] MEDS: Calcium Carbonate 500 MG Tablet PO ×3 (07:13→17:55)
[2022-03-20] MEDS: Lisinopril 10 MG Tablet PO (07:13)
[2022-03-20 07:17] VITALS: BP 133/58; PULSE 79
--- NOTE | 2022-03-20 09:02 | MDS.RN ---
Pain interview for nilo 03/21/22
[2022-03-20] MEDS: Ascorbic Acid 500 MG Tablet PO (10:26)
[2022-03-20] MEDS: Aspirin 81 MG TAB.CHEW PO ×2 (10:27→17:55)
[2022-03-20 16:00] VITALS: BP 148/74; PULSE 88; RESP 18; TEMP 36.8; O2SAT 96
--- NOTE | 2022-03-20 16:47 | CASEMGMT ---
Social Work BIMS () and PHQ-9 (01/26) completed for MDS assessment. Score indicates mild depression. Explored responses with pt. Pt denies depression and responses are r/t reason for admission. Azalia Donis, GWYN JACOBW
[2022-03-20] MEDS: Bisacodyl 10 MG Suppository RC (18:02)
[2022-03-21] MEDS: Acetaminophen 500 MG Tablet 1000 MG PO (06:18)
[2022-03-21] MEDS: Lisinopril 10 MG Tablet PO (06:18)
[2022-03-21] MEDS: traMADol 50 MG Tablet PO (06:18)
[2022-03-21 06:26] VITALS: BP 136/79; PULSE 75
[2022-03-21] MEDS: Calcium Carbonate 500 MG Tablet PO (07:35)
[2022-03-21] MEDS: Aspirin 81 MG TAB.CHEW PO (07:37)
--- NOTE | 2022-03-27 16:33 | NURSING ---
Waste And Batting Waste Chopper Note: Interview and Section F of MDS complete.
--- NOTE | 2022-03-30 11:43 | MDS.RN ---
Information for the mds was obtained from review of the clinical record, interview of resident, staff, and direct observation of resident's care.
== END 2022-03-21 11:06 | disposition home or self-care (01) | DRG 561 ==
PROVIDERS: Admitting Provider Family Medicine Geriatric Medicine; PCP Family Medicine; Visit Provider Family Medicine Geriatric Medicine
DX: S72.002D Fracture of unspecified part of neck of left femur, subsequent encounter for closed fracture with routine healing (principal); D50.9 Iron deficiency anemia, unspecified; N18.32 Chronic kidney disease, stage 3b; I12.9 Hypertensive chronic kidney disease with stage 1 through stage 4 chronic kidney disease, or unspecified chronic kidney disease; W19.XXXD Unspecified fall, subsequent encounter; Z79.82 Long term (current) use of aspirin; Z87.891 Personal history of nicotine dependence; Z79.899 Other long term (current) drug therapy; Z96.642 Presence of left artificial hip joint
CPT/HCPCS: 36415; 74018; 80048; 85025; 97110; 97116; 97162; 97166; 97530; 97535; 97802